=== PATIENT | male | born 1960 | race Caucasian/White ===

== ENCOUNTER → 2017-05-11 | Outpatient (CLI) | payer OTHER ==
--- NOTE | 2017-05-11 13:58 | XR ---
EXAMINATION TYPE: XR chest 2V DATE OF EXAM: 05/11/2017 COMPARISON: 11/05/2015 TECHNIQUE: PA and lateral views submitted. HISTORY: Psoriasis FINDINGS: The lungs are clear and there is no pneumothorax, pleural effusion, or focal pneumonia. Arthropathy of the shoulders. Biapical pleural thickening. Borderline cardiomegaly. Hypertrophic and degenerativ e change of the spine. No pleural calcifications. Chronic rib deformity on the right compatible with remote trauma. IMPRESSION: 1. No acute process.
[2017-05-11 14:31] LABS: Basophils % (A) 0 %; Eosinophils # (A) 0.2 k/uL (0-0.7); Eosinophils % (A) 4 %; HCT 52.3 % (39.0-53.0); HGB 16.6 gm/dL (13.0-17.5); Lymphocytes % (A) 21 %; MCH 31.3 pg (25.0-35.0); MCHC 31.8 g/dL (31.0-37.0); MCV 98.5 fL (80.0-100.0); Mean Platelet Volume 7.1; Monocytes # (A) 0.2 k/uL (0-1.0); Monocytes % (A) 5 %; Neutrophils # (A) 3.3 k/uL (1.3-7.7); Neutrophils % (A) 69 %; Platelet Count 170 k/uL (150-450); RBC 5.31 m/uL (4.30-5.90); RDW 12.2 % (11.5-15.5); WBC 4.8 k/uL (3.8-10.6)
[2017-05-11 14:38] LABS: ALT 74 U/L (21-72); AST 55 U/L (17-59)
== END | disposition home or self-care (01) ==
LOC: RADXRMAIN 13:35
PROVIDERS: ATTEND Dermatology MOHS-Micrographic Surgery
DX: L40.0 Psoriasis vulgaris (principal)
CPT/HCPCS: 36415; 71046; 82565; 84450; 84460; 85025

== ENCOUNTER → 2018-04-22 | Outpatient (CLI) | payer BC ==
--- NOTE | 2018-04-22 13:21 | XR ---
EXAMINATION TYPE: XR chest 2V DATE OF EXAM: 04/22/2018 COMPARISON: 05/11/2017 TECHNIQUE: PA and lateral views submitted. HISTORY: High blood pressure FINDINGS: The lungs are clear and there is no pneumothorax, pleural effusion, or focal pneumonia. No overt fa ilure. Arthropathy of the shoulder. Hypertrophic and degenerative changes spine. Stable appearing den sity overlying the vertebral column on the lateral view. No pleural calcifications. No granuloma. No diagnostic evidence of TB by chest x-ray. IMPRESSION: 1. No acute process. There is a nodular appearing density overlying the thoracic vertebral, and the l ateral view. CT of the chest could be obtained to assess if this is related to the osseous structures or pulmonary nodule.
== END | disposition home or self-care (01) ==
LOC: RADXRMAIN 12:42
PROVIDERS: ATTEND Dermatology MOHS-Micrographic Surgery
DX: L40.0 Psoriasis vulgaris (principal)
CPT/HCPCS: 71046

== ENCOUNTER 2020-03-14 01:03 | Inpatient (IN) | payer BC ==
--- NOTE | 2020-03-14 01:30 | ED ---
Chest Pain HPI - General Chief Complaint: Chest Pain Stated Complaint: Chest Pain Time Seen by Provider: 03/14/20 01:16 Source: police Mode of arrival: wheelchair Limitations: no limitations - History of Present Illness Initial Comments: This patient is a 60-year-old man with history of previous AK who states that he is having pain that is very similar to previous AK. States that he started having left chest and substernal pain little after midnight. He was feeling a little short of breath. Patient's son prevailed upon him to come to the emergency department. He states that he has had stents placed 3 times. He believes last time he was here was about 7 years ago for that. 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 MD Complaint: chest pain Onset/Timin -: hour(s) Onset: during rest Pain Location: substernal, left chest, right chest Pain Radiation: back Severity: severe Quality: aching Consistency: constant Improves With: nothing Worsens With: nothing Treatments Prior to Arrival: none - Related Data Home Medications Medication Instructions Recorded Confirmed Guselkumab [Tremfya] 100 mg SQ Q60D 03/14/20 03/14/20 Probenecid/Colchicine 1 tab PO BID PRN 03/14/20 03/14/20 [Probenecid-Colchicine Tabs] amLODIPine [Norvasc] 10 mg PO DAILY 03/14/20 03/14/20 lisinopriL [Zestril] 40 mg PO DAILY 03/14/20 03/14/20 Allergies Allergy/AdvReac Type Severity Reaction Status Date / Time No Known Allergies Allergy Verified 03/14/20 09:14 Review of Systems ROS Statement: Those systems with pertinent positive or pertinent negative responses have been documented in the HPI. ROS Other: All systems not noted in ROS Statement are negative. Constitutional: Denies: fever, chills Respiratory: Denies: cough, dyspnea Cardiovascular: Reports: chest pain. Denies: palpitations, orthopnea, edema, syncope Gastrointestinal: Denies: abdominal pain, nausea, vomiting Genitourinary: Denies: dysuria, hematuria Musculoskeletal: Denies: back pain Skin: Denies: rash Neurological: Denies: headache, weakness, numbness EKG Findings - EKG Results: EKG: interpreted by ERMD - Blocks, Roland, Hypertrophy, ST Abn: AV and intraventricular conduction: left bundle branch block (fixed/intermittent , complete/incomplete) QRS axis and voltage: left axis deviation (-30 to -90) Past Medical History Past Medical History: Chest Pain / Angina, Hyperlipidemia, Hypertension Additional Past Medical History / Comment(s): gout, psoriasis History of Any Multi-Drug Resistant Organisms: None Reported Past Surgical History: Heart Catheterization, Heart Catheterization With Stent Additional Past Surgical History / Comment(s): right leg Past Psychological History: No Psychological Hx Reported Smoking Status: Current some day smoker Past Alcohol Use History: Daily Past Drug Use History: None Reported General Exam Limitations: no limitations General appearance: alert, in no apparent distress Head exam: Present: atraumatic, normocephalic Eye exam: Present: normal appearance. Absent: scleral icterus, conjunctival injection ENT exam: Present: normal oropharynx Neck exam: Present: normal inspection Respiratory exam: Present: normal lung sounds bilaterally. Absent: respiratory distress, wheezes, rales, rhonchi, stridor Cardiovascular Exam: Present: regular rate, normal rhythm, normal heart sounds. Absent: systolic murmur, diastolic murmur, rubs, gallop GI/Abdominal exam: Present: soft. Absent: distended, tenderness, guarding, rebound, rigid, mass Extremities exam: Present: normal inspection, normal capillary refill. Absent: pedal edema, calf tenderness Back exam: Present: normal inspection. Absent: CVA tenderness (R), CVA tenderness (L) Neurological exam: Present: alert Skin exam: Present: warm, dry, intact, normal color. Absent: rash Course Vital Signs 03/14/20 03/14/20 03/14/20 01:06 01:14 01:27 Temperature 98.2 F Pulse Rate 83 70 Pulse Rate [ Pulse Oximetery ] Respiratory 22 20 Rate Blood Pressure 127/78 110/55 94/58 Blood Pressure [Left Arm] O2 Sat by Pulse 88 L 100 100 Oximetry 03/14/20 03/14/20 03/14/20 02:41 03:29 03:51 Temperature 98.1 F Pulse Rate 92 93 Pulse Rate [ 90 Pulse Oximetery ] Respiratory 18 18 16 Rate Blood Pressure 133/88 120/79 Blood Pressure 140/81 [Left Arm] O2 Sat by Pulse 98 99 Oximetry - Reevaluation(s) Reevaluation #1: 12/27/20 02:16 Patient is 60-year-old man reportedly with history of previous coronary artery disease. Not able to find any previous ECG, therefore case discussed with cardiology regarding the left bundle-branch block. Patient is beginning to have some relief with medical therapy. Chest Pain MDM - MDM This patient is a 60-year-old man presenting with chest pain. History, physical, labs consistent with acute coronary syndrome. He is given aspirin and morphine and beginning to get pain relief. Patient started on heparin, nitrates ordered. Case is discussed with cardiology and admitting physician. Critical Care Time Critical Care Time: Yes (40 minutes) Disposition Clinical Impression: Acute coronary syndrome with high troponin Disposition: ADMITTED IP TO THIS HOSP Condition: Serious Is patient prescribed a controlled substance at d/c from ED?: No
[2020-03-14] MEDS ORDERED: NITROGLYCERIN SL TABS 0.4 MG TAB SUBLINGUAL STA (01:38)
[2020-03-14] MEDS ORDERED: ASPIRIN 81 MG PO STA (01:38)
[2020-03-14] MEDS ORDERED: MORPHINE SULFATE 4 MG/ML SYRINGE IV STA ×3 (01:44→02:52)
[2020-03-14] MEDS ORDERED: HEPARIN SODIUM,PORCINE 5,000 UNIT/ML 1 ML VIAL IV ONE (01:44)
[2020-03-14] MEDS ORDERED: HEPARIN SODIUM,PORCINE 5,000 UNIT/ML 1 ML VIAL IV PRN (01:44)
[2020-03-14 01:58] LABS: Basophils # (A) 0.1 k/uL (0-0.2); Basophils % (A) 1 %; Eosinophils # (A) 0.2 k/uL (0-0.7); Eosinophils % (A) 2 %; HCT 51.1 % (39.0-53.0); HGB 17.8 gm/dL (13.0-17.5); Lymphocytes # (A) 1.7 k/uL (1.0-4.8); Lymphocytes % (A) 20 %; MCHC 34.9 g/dL (31.0-37.0); MCV 94.5 fL (80.0-100.0); Mean Platelet Volume 7.4; Monocytes # (A) 0.6 k/uL (0-1.0); Monocytes % (A) 7 %; Neutrophils # (A) 5.8 k/uL (1.3-7.7); Neutrophils % (A) 68 %; Platelet Count 184 k/uL (150-450); RBC 5.41 m/uL (4.30-5.90); RDW 12.3 % (11.5-15.5); WBC 8.6 k/uL (3.8-10.6)
[2020-03-14] MEDS: HEPARIN SOD,PORK IN 0.45% NACL 25,000 UNIT in 0.45% NACL 1 250ML.BAG IV SCH ×2 (02:01→19:41)
--- NOTE | 2020-03-14 02:09 | XR ---
EXAM: XR Chest, 1 View CLINICAL HISTORY: ITS.REASON XR Reason: chest pain TECHNIQUE: Frontal view of the chest. COMPARISON: September 18, 2018 FINDINGS: Lungs: There are more prominent interstitial markings in the lung bases than previous which may be due to lower lung volumes and subsegmental atelectasis versus mild edema or interstitial pneumonitis. Pulmonary vasculature is slightly prominent centrally. Pleural space: Unremarkable. No pneumothorax. Heart: The cardiac silhouette is mildly enlarged. Mediastinum: Unremarkable. Bones/joints: Mild to moderate multilevel osteophytosis is seen throughout the thoracic spine. IMPRESSION: Mild cardiomegaly with more prominent interstitial markings in the lung bases than previous which may be due to lower lung volumes and subsegmental atelectasis versus mild edema or interstitial pneumonitis.
[2020-03-14 02:10] LABS: ALT 34 U/L (4-49); AST 29 U/L (17-59); African American GFR (CKD) >90 (>60 ml/min/1.73 sqM); Albumin 4.4 g/dL (3.5-5.0); Alkaline Phosphatase 69 U/L (38-126); Amylase 47 U/L (30-110); Anion Gap 11 mmol/L; Blood Urea Nitrogen 9 mg/dL (9-20); Carbon Dioxide 25 mmol/L (22-30); Chloride 99 mmol/L (98-107); Glucose 140 mg/dL (74-99); Lipase 89 U/L (23-300); Magnesium 1.9 mg/dL (1.6-2.3); Non-African American GFR(CKD) >90 (>60 ml/min/1.73 sqM); Potassium 4.1 mmol/L (3.5-5.1); Sodium 135 mmol/L (137-145); Total Bilirubin 0.6 mg/dL (0.2-1.3); Total Protein 7.5 g/dL (6.3-8.2)
[2020-03-14 02:25] LABS: D-Dimer 0.22 mg/L FEU (<0.60); Partial Thromboplastin Time 29.8 sec (22.0-30.0); Prothrombin Time 10.3 sec (9.0-12.0)
[2020-03-14] MEDS ORDERED: NITROGLYCERIN SL TABS 0.4 MG TAB SUBLINGUAL PRN (02:53)
[2020-03-14] MEDS ORDERED: METOPROLOL TARTRATE 12.5 MG TAB PO SCH (09:00)
[2020-03-14] MEDS ORDERED: lisinopriL 5 MG TAB PO SCH (09:00)
--- NOTE | 2020-03-14 11:44 | P.CRDCN ---
History of Present Illness Consult date: 03/14/20 History of present illness: CHIEF COMPLAINT: Chest pain HISTORY OF PRESENT ILLNESS: This is a 60-year-old male with a past medical history significant for hypertension, hyperlipidemia, nicotine dependence, and coronary artery disease with previous stent placement. Patient states he used to follow in the office with Dr. Hussein but has not seen him in probably 6 or 7 years. We have been asked to see the patient in consultation for chest pain. Patient examined this morning at the bedside. Patient states he was sitting in his recliner yesterday around 9 PM when he developed chest pain. He states the pain felt like a burning sensation. He reports feeling short of breath with this as well. He states the pain went into both of his shoulders. The pain was not worse with inspiration or movement. Patient states he gets this burning sensation in his chest about once every month or 2. He states he usually can take an Aleve and the symptoms resolved but this time they did not. The patient states he is still having a small amount of pain this morning but it is significantly improved from admission. The patient reports having 3 stents placed in the past. He thinks the last stent was placed about 5 or 6 years ago. He reports he has not followed up since that time. He reports he was started on lisinopril and Norvasc within the past few months by his PCP. He denies taking any other cardiac medications. DIAGNOSTICS: EKG reveals sinus mechanism with left bundle branch block Chest xray mild cardiomegaly with more prominent interstitial markings in the lung bases than previous which may be due to lower lung volumes and subsegmental atelectasis versus mild edema or or interstitial pneumonitis Laboratory data: WBC 8.6. Hemoglobin 17.8. Platelet count 184. D-dimer 0.22. Sodium 135. Potassium 4.1. BUN 9. Creatinine 0.76. Magnesium 1.9. Troponin 0.172. 0.151. 0.122. Current home cardiac medications include Norvasc 10 g daily and lisinopril 40 mg daily REVIEW OF SYSTEMS: At the time of my exam: CONSTITUTIONAL: Denies fever or chills. HEENT: Denies blurred vision, vision changes, or eye pain. Denies hemoptysis CARDIOVASCULAR: Denies chest pain, orthopnea, PND or palpitations RESPIRATORY: No shortness of breath. GASTROINTESTINAL: Denies abdominal pain. Denies nausea or vomiting. HEMATOLOGIC: Denies bleeding disorders. GENITOURINARY: Denies any blood in urine. SKIN: Denies pruitis. Denies rash. PHYSICAL EXAM: VITAL SIGNS: Reviewed. GENERAL: Well-developed in no acute distress. HEENT: Head is normocephalic. Pupils are equal, round. Sclerae anicteric. Mucous membranes of the mouth are moist. Neck supple. No JVD or thyromegaly LUNGS: Respirations even and unlabored. Lungs essentially clear to auscultation bilaterally. HEART: Regular rate and rhythm. S1 and S2 heard. ABDOMEN: Soft. Nondistended. Nontender. EXTREMITIES: Normal range of motion. No clubbing or cyanosis. Peripheral pulses intact. No lower extremity edema NEUROLOGIC: Awake and alert. Oriented x 3. ASSESSMENT: Non-ST elevated myocardial infarction Coronary artery disease with previous stent placement (patient reports 3 stents, last placed 5-6 years ago) Hypertension Hyperlipidemia Nicotine dependence PLAN: Obtain 2-D echo to assess cardiac structure and function Patient was advised to undergo cardiac catheterization. However patient is refusing at this time. We will continue with medical management. Begin aspirin 81 mg daily, Plavix 75 mg daily, metoprolol 25 mg twice a day Resume lisinopril at a lower dose of 10 mg daily. Will increase if blood pressure tolerates. Resume home dose of Norvasc Continue IV heparin for an additional 24 hours Further recommendations pending patient course Nurse practitioner note has been reviewed by physician. Signing provider agrees with the documented findings, assessment, and plan of care. Past Medical History Past Medical History: Chest Pain / Angina, Hyperlipidemia, Hypertension, Myocardial Infarction ([place]) Additional Past Medical History / Comment(s): gout, psoriasis Last Myocardial Infarction Date:: 03/19/2014 History of Any Multi-Drug Resistant Organisms: None Reported Past Surgical History: Heart Catheterization, Heart Catheterization With Stent Additional Past Surgical History / Comment(s): right leg Past Anesthesia/Blood Transfusion Reactions: No Reported Reaction Date of Last Stent Placement:: 03/19/2014 Past Psychological History: No Psychological Hx Reported Smoking Status: Current some day smoker Past Alcohol Use History: Daily Past Drug Use History: None Reported Medications and Allergies Home Medications Medication Instructions Recorded Confirmed Type Guselkumab [Tremfya] 100 mg SQ Q60D 03/14/20 03/14/20 History Probenecid/Colchicine 1 tab PO BID PRN 03/14/20 03/14/20 History [Probenecid-Colchicine Tabs] amLODIPine [Norvasc] 10 mg PO DAILY 03/14/20 03/14/20 History lisinopriL [Zestril] 40 mg PO DAILY 03/14/20 03/14/20 History Allergies Allergy/AdvReac Type Severity Reaction Status Date / Time No Known Allergies Allergy Verified 03/14/20 09:14 Physical Exam Vitals: Vital Signs Temp Pulse Pulse Resp BP BP Pulse Ox 03/14/20 08:00 98.2 F 94 20 118/77 97 03/14/20 04:48 90 16 03/14/20 03:51 93 16 120/79 99 03/14/20 03:29 98.1 F 90 18 140/81 98 03/14/20 02:41 92 18 133/88 03/14/20 01:27 70 20 94/58 100 03/14/20 01:14 110/55 100 03/14/20 01:06 98.2 F 83 22 127/78 88 L Intake and Output 03/13/20 03/14/20 03/14/20 22:59 06:59 14:59 Intake Total 89.667 Balance 89.667 Intake: Intake, IV Titration 89.667 Amount Heparin Sod,Pork in 0.45% 89.667 NaCl 25,000 unit In 0.45 % NaCl 1 250ml.bag @ 7. 874 UNITS/KG/HR 10 mls/hr IV .Q24H [facility] Rx#: [id number] Other: Voiding Method Toilet # Voids 1 Weight 128.9 kg Results 03/14/20 01:46 03/14/20 01:46 Cardiac Enzymes 03/14/20 03/14/20 03/14/20 Range/Units 01:46 01:46 05:33 AST 29 (17-59) U/L Troponin I 0.172 H* 0.151 H* (0.000-0.034) ng/mL 03/14/20 Range/Units 08:26 AST (17-59) U/L Troponin I 0.122 H* (0.000-0.034) ng/mL Coagulation 03/14/20 03/14/20 Range/Units 01:46 08:26 PT 10.3 (9.0-12.0) sec APTT 29.8 38.6 H (22.0-30.0) sec CBC 03/14/20 Range/Units 01:46 WBC 8.6 (3.8-10.6) k/uL RBC 5.41 (4.30-5.90) m/uL Hgb 17.8 H (13.0-17.5) gm/dL Hct 51.1 (39.0-53.0) % Plt Count 184 (150-450) k/uL Comprehensive Metabolic Panel 03/14/20 Range/Units 01:46 Sodium 135 L (137-145) mmol/L Potassium 4.1 (3.5-5.1) mmol/L Chloride 99 (98-107) mmol/L Carbon Dioxide 25 (22-30) mmol/L BUN 9 (9-20) mg/dL Creatinine 0.76 (0.66-1.25) mg/dL Glucose 140 H (74-99) mg/dL Calcium 10.0 (8.4-10.2) mg/dL AST 29 (17-59) U/L ALT 34 (4-49) U/L Alkaline Phosphatase 69 (38-126) U/L Total Protein 7.5 (6.3-8.2) g/dL Albumin 4.4 (3.5-5.0) g/dL Current Medications Generic Name Dose Route Start Last Admin Trade Name Freq PRN Reason Stop Dose Admin Amlodipine Besylate 10 mg 03/15/20 09:00 Amlodipine 10 Mg Tab PO DAILY [facility] Aspirin 81 mg 03/15/20 09:00 Aspirin 81 Mg PO DAILY [facility] Atorvastatin Calcium 40 mg 03/14/20 21:00 Atorvastatin 40 Mg Tab PO HS [facility] Clopidogrel Bisulfate 75 mg 03/14/20 11:00 Clopidogrel 75 Mg Tab PO DAILY [facility] Heparin Sodium (Porcine) 0 unit 03/14/20 01:44 03/14/20 11:00 Heparin Sodium,Porcine 5,000 Unit/Ml 1 Ml Vial IV 3,222.5 unit PER PROTOCOL PRN Administration Low PTT Protocol Heparin Sodium/Sodium Chloride 250 mls @ 10 mls/hr 03/14/20 01:45 03/14/20 10:59 25,000 unit/ Sodium Chloride IV 9.874 units/kg/hr .Q24H [facility]IE 12.541 mls/hr Titration Protocol 7.874 UNITS/KG/HR Lisinopril 5 mg 03/14/20 09:00 03/14/20 08:53 Lisinopril 5 Mg Tab PO 5 mg DAILY CALLIE Administration Metoprolol Tartrate 12.5 mg 03/14/20 09:00 03/14/20 08:53 Metoprolol Tartrate 12.5 Mg Tab PO 12.5 mg BID CALLIE Administration Nitroglycerin 0.4 mg 03/14/20 02:53 Nitroglycerin Sl Tabs 0.4 Mg Tab SUBLINGUAL Q5M PRN Chest Pain Intake and Output 03/13/20 03/14/20 03/14/20 22:59 06:59 14:59 Intake Total 89.667 Balance 89.667 Intake: Intake, IV Titration 89.667 Amount Heparin Sod,Pork in 0.45% 89.667 NaCl 25,000 unit In 0.45 % NaCl 1 250ml.bag @ 7. 874 UNITS/KG/HR 10 mls/hr IV .Q24H [facility] Rx#: [id number] Other: Voiding Method Toilet # Voids 1 Weight 128.9 kg 03/14/20 01:46 03/14/20 01:46
[2020-03-14] MEDS: CLOPIDOGREL 75 MG TAB PO SCH (12:02)
--- NOTE | 2020-03-14 12:50 | P.HPIM ---
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 Chest x-ray showed mild interstitial disease hemoglobin was 17.8 hematocrit 8 is elevated troponin was 0.17 to. Patient blood pressure was a bit elevated the time was stabilized started on heparin drip diagnosed with non-ST OH will be seeing cardiology and still nothing by mouth for possible heart cath. Review of Systems CONSTITUTIONAL: Well-developed no acute respiratory distress. EYES: No icterus sclerae, no conjunctivitis. EARS, NOSE, MOUTH, THROAT, and FACE: No sore throat, lymphadenopathy, carotid bruits or deformity. RESPIRATORY: Positive shortness of breath no cough wheezes CARDIOVASCULAR: Positive PND orthopnea and angina. GASTROINTESTINAL: No Abd pain, Nausea or vomiting, no Diarrhea or constipation, No GI Bleed, no distention or masses. GENITOURINARY: Negative for Hematuria or UTI, no kidney stones. INTEGUMENT/BREAST: Negative for any muscular injury with mild osteoarthritis.. HEMATOLOGIC/LYMPHATIC: Negative for bleed or purpura. MUSCULOSKELTAL: Negative for Myalgia or arthralgia. NEURLOGICAL: No LOC, Sz or syncope, blurred vision dizziness or abnormality.. BEHAVIORAL/PSYCH: Negative. ENDOCRINE: Negative. Past Medical History Past Medical History: Chest Pain / Angina, Hyperlipidemia, Hypertension, Myocardial Infarction ([place]) Additional Past Medical History / Comment(s): gout, psoriasis Last Myocardial Infarction Date:: 03/19/2014 History of Any Multi-Drug Resistant Organisms: None Reported Past Surgical History: Heart Catheterization, Heart Catheterization With Stent Additional Past Surgical History / Comment(s): right leg Past Anesthesia/Blood Transfusion Reactions: No Reported Reaction Date of Last Stent Placement:: 03/19/2014 Past Psychological History: No Psychological Hx Reported Smoking Status: Current some day smoker Past Alcohol Use History: Daily Past Drug Use History: None Reported Medications and Allergies Home Medications Medication Instructions Recorded Confirmed Type Guselkumab [Tremfya] 100 mg SQ Q60D 03/14/20 03/14/20 History Probenecid/Colchicine 1 tab PO BID PRN 03/14/20 03/14/20 History [Probenecid-Colchicine Tabs] amLODIPine [Norvasc] 10 mg PO DAILY 03/14/20 03/14/20 History lisinopriL [Zestril] 40 mg PO DAILY 03/14/20 03/14/20 History Allergies Allergy/AdvReac Type Severity Reaction Status Date / Time No Known Allergies Allergy Verified 03/14/20 09:14 Physical Exam Vitals: Vital Signs Temp Pulse Pulse Resp BP BP Pulse Ox 03/14/20 11:45 98.5 F 86 20 126/69 95 03/14/20 08:00 98.2 F 94 20 118/77 97 03/14/20 04:48 90 16 03/14/20 03:51 93 16 120/79 99 03/14/20 03:29 98.1 F 90 18 140/81 98 03/14/20 02:41 92 18 133/88 03/14/20 01:27 70 20 94/58 100 03/14/20 01:14 110/55 100 03/14/20 01:06 98.2 F 83 22 127/78 88 L Intake and Output 03/13/20 03/14/20 03/14/20 22:59 06:59 14:59 Intake Total 89.667 Balance 89.667 Intake: Intake, IV Titration 89.667 Amount Heparin Sod,Pork in 0.45% 89.667 NaCl 25,000 unit In 0.45 % NaCl 1 250ml.bag @ 7. 874 UNITS/KG/HR 10 mls/hr IV .Q24H [facility] Rx#: [id number] Other: Voiding Method Toilet # Voids 1 Weight 128.9 kg General Appearance: Alert, cooperative, no distress, appears stated age. Mildly obese Neck HEENT: Supple, no lymphadenopathy, no thyroid enlargement, no carotid bruits. Lungs: Decreased breath some relative far rhonchi Chest Wall: Decrease expansion with deep inspiration no tenderness and no deformity was found on exam, no costochondral pain or discomfort. Heart: Regular rate and rhythm, S1, S2 normal, no murmur, rub or gallop. Back: Symmetric, no curvature, ROM normal, no CVA tenderness. Abdomen: Soft, non-tender, bowel sounds active all four quadrants, no masses, no organomegaly. Extremities: Extremities normal, atraumatic, no cyanosis trace edema Pulses: 2+ and symmetric. Skin: Skin color, texture, tugor normal, no rashes or lesions. Neurologic: Alert oriented x3 cranial nerves II through XII intact, no motor deficit, no abnormal balance or gait. Results CBC & Chem 7: 03/14/20 01:46 03/14/20 01:46 Labs: Abnormal Lab Results - Last 24 Hours (Table) 03/14/20 03/14/20 03/14/20 Range/Units 01:46 01:46 01:46 Hgb 17.8 H (13.0-17.5) gm/dL APTT (22.0-30.0) sec Sodium 135 L (137-145) mmol/L Glucose 140 H (74-99) mg/dL Troponin I 0.172 H* (0.000-0.034) ng/mL 03/14/20 03/14/20 03/14/20 Range/Units 05:33 08:26 08:26 Hgb (13.0-17.5) gm/dL APTT 38.6 H (22.0-30.0) sec Sodium (137-145) mmol/L Glucose (74-99) mg/dL Troponin I 0.151 H* 0.122 H* (0.000-0.034) ng/mL Thrombosis Risk Factor Assmnt - DVT/VTE Prophylaxis DVT/VTE Prophylaxis: Pharmacologic Prophylaxis ordered, Mechanical Prophylaxis ordered - Choose All That Apply Any of the Below Risk Factors Present?: Yes Each Factor Represents 1 point: Acute OH, Obesity (BMI >25) Other Risk Factors: Yes Each Risk Factor Represents 2 Points: Age 61-74 years Other congenital or acquired thrombophilia - If yes, enter type in comment: No Thrombosis Risk Factor Assessment Total Risk Factor Score: 4 Thrombosis Risk Factor Assessment Level: Moderate Risk Assessment and Plan Assessment: 1 non-ST OH: Patient was hospitalized will continue heparin drip continue nitro consult cardiology echocardiogram possible heart cath. Patient is argumentative about his heart catheter this point after the full explanation is agreeable to do an echo and stress test if abnormal he'll be going for heart cath. 2 recurrent unstable angina: With known history of coronary disease patient will require intervention for better diagnosis methadone. 3 hypertension: We'll resume lisinopril at 40 mg a day along with amlodipine 10 mg daily. 4 hyperlipidemia: I agree with atorvastatin 40 mg daily. 5 BPH: Watch for any urinary retention. 6 chronic history of psoriasis: Patient has been on biological agent as an injection every 60 days. 7 history of gout: Remain on probencid and colchicin. 8 hyperglycemia: On diet control Accu-Chek sliding coverage and be done. 9 possible obstructive sleep apnea with mostly secondary polycythemia patient will require sleep study. 10 GI prophylaxis: Patient is protonic 40 mg daily. 11 DVT prophylaxis: Patient is on heparin drip currently. Next CODE STATUS: Full code. Admit patient to inpatient status more than 2 night stay.
[2020-03-14 15:30] LABS: Glucose,Whole Blood 185 mg/dL (75-99)
[2020-03-14] MEDS: METOPROLOL TARTRATE 25 MG TAB PO SCH (19:41)
[2020-03-14] MEDS: ATORVASTATIN 40 MG TAB PO SCH (19:41)
[2020-03-15 07:30] LABS: Basophils # (A) 0.1 k/uL (0-0.2); Basophils % (A) 1 %; Eosinophils # (A) 0.1 k/uL (0-0.7); Eosinophils % (A) 2 %; HCT 49.2 % (39.0-53.0); HGB 16.7 gm/dL (13.0-17.5); Lymphocytes % (A) 15 %; MCH 32.6 pg (25.0-35.0); MCHC 33.9 g/dL (31.0-37.0); MCV 96.4 fL (80.0-100.0); Mean Platelet Volume 7.3; Monocytes # (A) 0.6 k/uL (0-1.0); Monocytes % (A) 8 %; Neutrophils # (A) 4.9 k/uL (1.3-7.7); Neutrophils % (A) 72 %; Platelet Count 150 k/uL (150-450); RBC 5.11 m/uL (4.30-5.90); RDW 12.3 % (11.5-15.5); WBC 6.7 k/uL (3.8-10.6)
[2020-03-15 07:42] LABS: ALT 23 U/L (4-49); AST 20 U/L (17-59); African American GFR (CKD) >90 (>60 ml/min/1.73 sqM); Albumin 3.9 g/dL (3.5-5.0); Alkaline Phosphatase 67 U/L (38-126); Anion Gap 10 mmol/L; Blood Urea Nitrogen 15 mg/dL (9-20); Calcium 9.9 mg/dL (8.4-10.2); Carbon Dioxide 21 mmol/L (22-30); Chloride 103 mmol/L (98-107); Cholesterol 200 mg/dL (<200); Glucose 148 mg/dL (74-99); HDL Cholesterol 60 mg/dL (40-60); LDL Cholesterol,Calculated 114 mg/dL (0-99); Non-African American GFR(CKD) >90 (>60 ml/min/1.73 sqM); Potassium 4.2 mmol/L (3.5-5.1); Sodium 134 mmol/L (137-145); Total Bilirubin 1.3 mg/dL (0.2-1.3); Total Protein 6.9 g/dL (6.3-8.2); Triglycerides 129 mg/dL (<150)
[2020-03-15] MEDS: CLOPIDOGREL 75 MG TAB PO SCH (08:13)
[2020-03-15] MEDS: amLODIPine 10 MG TAB PO SCH (08:13)
[2020-03-15] MEDS: METOPROLOL TARTRATE 25 MG TAB PO SCH ×2 (08:13→20:51)
[2020-03-15] MEDS: lisinopriL 10 MG TAB PO SCH (08:13)
[2020-03-15] MEDS: ASPIRIN 81 MG PO SCH (08:13)
[2020-03-15] MEDS ORDERED: NON FORMULARY DRUG (Lisinopril [Zestril] 40 MG Tablet) PO SCH (09:00)
[2020-03-15] MEDS ORDERED: ASPIRIN 325 MG TAB PO SCH (09:00)
--- NOTE | 2020-03-15 10:29 | P.PN ---
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 Chest x-ray showed mild interstitial disease hemoglobin was 17.8 hematocrit 8 is elevated troponin was 0.17 to. Patient blood pressure was a bit elevated the time was stabilized started on heparin drip diagnosed with non-ST UT will be seeing cardiology and still nothing by mouth for possible heart cath. 03/15: Patient evaluated this morning, resting in bed comfortably in no acute distress. Patient denies any further episodes of chest pain or shortness of breath. Patient refused to undergo cardiac catheterization yesterday. Had lengthy discussion with patient today, he is now agreeable to cardiac catheterization. Patient continues on aspirin, Plavix along with metoprolol and heparin drip. Cardiology on consult, will discuss cardiac catheterization with patient today. Objective - Vital Signs Vital signs: Vital Signs Temp 98.3 F 03/15/20 08:12 Pulse 64 03/15/20 08:12 Resp 18 03/15/20 08:12 BP 130/83 03/15/20 08:12 Pulse Ox 95 03/15/20 08:12 Intake & Output 03/14/20 03/15/20 03/15/20 18:59 06:59 18:59 Intake Total 669.987 109.107 Balance 669.987 109.107 Weight 127.3 kg Intake: IV 100.32 Heparin Sod,Pork in 0.45% 100.32 NaCl 25,000 unit In 0.45 % NaCl 1 250ml.bag @ 7. 874 UNITS/KG/HR 10 mls/hr IV .Q24H [facility] Rx#: [id number] Intake, IV Titration 89.667 109.107 Amount Heparin Sod,Pork in 0.45% 89.667 109.107 NaCl 25,000 unit In 0.45 % NaCl 1 250ml.bag @ 7. 874 UNITS/KG/HR 10 mls/hr IV .Q24H [facility] Rx#: [id number] Oral 480 Other: # Voids 1 1 - Constitutional General appearance: Present: cooperative, no acute distress, obese - EENT Eyes: Present: EOMI, PERRLA, normal appearance ENT: Present: hearing grossly normal, normal oropharynx. Absent: thrush - Neck Neck: Present: normal ROM. Absent: lymphadenopathy, rigidity, thyromegaly - Respiratory Respiratory: bilateral: CTA, negative: diminished, dullness, rales, rhonchi, wheezing - Cardiovascular Rhythm: regular Heart sounds: normal: S1, S2 - Gastrointestinal General gastrointestinal: Present: normal bowel sounds, soft. Absent: distended, hepatomegaly, organomegaly, splenomegaly, tenderness - Integumentary Integumentary: Present: normal. Absent: pale, rash, ulcer - Neurologic Neurologic: Present: CNII-XII intact. Absent: focal deficits - Musculoskeletal Musculoskeletal: Present: gait normal, strength equal bilaterally. Absent: right sided weakness, left sided weakness - Psychiatric Psychiatric: Present: A&O x's 3, appropriate affect, intact judgment & insight - Labs CBC & Chem 7: 03/15/20 06:56 03/15/20 06:56 Labs: Abnormal Lab Results - Last 24 Hours (Table) 03/14/20 03/14/20 03/15/20 Range/Units 01:26 16:54 06:56 APTT 54.0 H (22.0-30.0) sec Sodium 134 L (137-145) mmol/L Carbon Dioxide 21 L (22-30) mmol/L Creatinine 0.64 L (0.66-1.25) mg/dL Glucose 148 H (74-99) mg/dL POC Glucose (mg/dL) 185 H (75-99) mg/dL Cholesterol 200 H (<200) mg/dL LDL Cholesterol, Calc 114 H (0-99) mg/dL 03/15/20 Range/Units 06:56 APTT 52.0 H (22.0-30.0) sec Sodium (137-145) mmol/L Carbon Dioxide (22-30) mmol/L Creatinine (0.66-1.25) mg/dL Glucose (74-99) mg/dL POC Glucose (mg/dL) (75-99) mg/dL Cholesterol (<200) mg/dL LDL Cholesterol, Calc (0-99) mg/dL Assessment and Plan Plan: 1 non-ST UT: Patient was hospitalized will continue heparin drip continue nitro consult cardiology, patient originally refusing cardiac catheterization, patient is now agreeable 2 recurrent unstable angina: With known history of coronary disease, patient will require heart catheterization 3 hypertension: resume lisinopril at 40 mg a day along with amlodipine 10 mg daily. 4 hyperlipidemia: I agree with atorvastatin 40 mg daily. 5 BPH: Watch for any urinary retention. 6 chronic history of psoriasis: Patient has been on biological agent as an injection every 60 days. 7 history of gout: Remain on probencid and colchicin. 8 hyperglycemia: On diet control Accu-Chek sliding coverage and be done. 9 possible obstructive sleep apnea with mostly secondary polycythemia patient will require sleep study. 10 GI prophylaxis: Patient is protonic 40 mg daily. 11 DVT prophylaxis: Patient is on heparin drip currently. Next CODE STATUS: Full code. Admit patient to inpatient status more than 2 night stay. The above impression and plan of care have been discussed and directed by signing physician. Dianne Craig nurse practitioner acting as scribe for signing physician.
[2020-03-15] MEDS ORDERED: ALPRAZolam 0.5 MG TAB PO PRN (11:27)
[2020-03-15] MEDS ORDERED: ALPRAZolam 0.25 MG TAB PO PRN (11:27)
[2020-03-15] MEDS ORDERED: SODIUM CHLORIDE 0.9% 1,000 ML in EMPTY BAG 1 BAG IV ONE (11:27)
--- NOTE | 2020-03-15 11:41 | P.PN ---
Subjective Progress Note Date: 03/15/20 Principal diagnosis: Abnormal cardiac enzymes This is a pleasant 60-year-old gentleman was coronary artery disease and prior coronary revascularization as well as hypertension and dyslipidemia who was admitted to the hospital with shortness of breath and ruled in for acute coron holland event. Initially the patient was seen by Dr. Razo yesterday and a heart catheterization was advised but the patient refused. Today he agreed to pursue a heart catheterization. The EKG showed left bundle. Echo is in process to be done. Objective - Vital Signs Vital signs: Vital Signs Temp 98.3 F 03/15/20 08:12 Pulse 64 03/15/20 08:12 Resp 18 03/15/20 08:12 BP 130/83 03/15/20 08:12 Pulse Ox 95 03/15/20 08:12 Intake & Output 03/14/20 03/15/20 03/15/20 18:59 06:59 18:59 Intake Total 669.987 109.107 Balance 669.987 109.107 Weight 127.3 kg Intake: IV 100.32 Heparin Sod,Pork in 0.45% 100.32 NaCl 25,000 unit In 0.45 % NaCl 1 250ml.bag @ 7. 874 UNITS/KG/HR 10 mls/hr IV .Q24H [facility] Rx#: [id number] Intake, IV Titration 89.667 109.107 Amount Heparin Sod,Pork in 0.45% 89.667 109.107 NaCl 25,000 unit In 0.45 % NaCl 1 250ml.bag @ 7. 874 UNITS/KG/HR 10 mls/hr IV .Q24H [facility] Rx#: [id number] Oral 480 Other: # Voids 1 1 - Constitutional General appearance: Present: no acute distress - Respiratory Respiratory: bilateral: diminished - Cardiovascular Rhythm: regular Heart sounds: normal: S1, S2 - Labs CBC & Chem 7: 03/15/20 06:56 03/15/20 06:56 Labs: Abnormal Lab Results - Last 24 Hours (Table) 03/14/20 03/14/20 03/15/20 Range/Units 01:26 16:54 06:56 APTT 54.0 H (22.0-30.0) sec Sodium 134 L (137-145) mmol/L Carbon Dioxide 21 L (22-30) mmol/L Creatinine 0.64 L (0.66-1.25) mg/dL Glucose 148 H (74-99) mg/dL POC Glucose (mg/dL) 185 H (75-99) mg/dL Cholesterol 200 H (<200) mg/dL LDL Cholesterol, Calc 114 H (0-99) mg/dL 03/15/20 Range/Units 06:56 APTT 52.0 H (22.0-30.0) sec Sodium (137-145) mmol/L Carbon Dioxide (22-30) mmol/L Creatinine (0.66-1.25) mg/dL Glucose (74-99) mg/dL POC Glucose (mg/dL) (75-99) mg/dL Cholesterol (<200) mg/dL LDL Cholesterol, Calc (0-99) mg/dL Assessment and Plan Assessment: Assessment #1 acute coronary event #2 coronary artery disease #3 multiple comorbid conditions Plan #1 the patient is in process of having heart catheterization #2 follow-up with the patient
[2020-03-15] MEDS ORDERED: IV FLUID CONTINUATION 800 ML IV ONE (11:45)
[2020-03-15] MEDS ORDERED: LIDOCAINE 1% INJ 10MG/ML (20 ML MDV) ONE (11:51)
[2020-03-15] MEDS ORDERED: fentaNYL (PF) 50 MCG/ML 2 ML AMP ONE (11:58)
[2020-03-15] MEDS ORDERED: MIDAZOLAM 2 MG/2 ML VIAL IV ONE (12:00)
[2020-03-15] MEDS: fentaNYL (PF) 50 MCG/ML 2 ML AMP IV ONE ×2 (12:00→13:01)
[2020-03-15] MEDS ORDERED: LIDOCAINE 1% INJ 10MG/ML (20 ML MDV) SQ ONE (12:01)
[2020-03-15] MEDS ORDERED: BIVALIRUDIN BOLUS 250 MG/50 ML IV ONE (12:40)
[2020-03-15] MEDS ORDERED: BIVALIRUDIN 250 MG in SODIUM CHLORIDE 0.9% 50 ML IV ONE ×2 (12:41→13:09)
[2020-03-15] MEDS ORDERED: IOPAMIDOL-370 125ML BTL INJ ONE (12:49)
--- NOTE | 2020-03-15 13:00 | CC ---
CARDIAC CATHETERIZATION REPORT INDICATION: Non ST-segment elevation myocardial infarction. This is a 60-year-old gentleman with known extensive coronary artery disease, status post multiple prior angioplasties, who has not been seen by a clinical research specialist on a regular basis, comes into hospital with chest pain and ruled in for myocardial infarction. Initially, he did not want to have cardiac catheterization done. He changed his mind and agreed to proceed with it. PROCEDURE NOTE: After obtaining informed consent, left heart catheterization and coronary angiogram were performed via the right femoral artery. The right coronary artery was engaged using the right Brittaney catheter. Left coronary artery was engaged using an Amplatz left size 1 catheter after attempting a size 3.5 Brittaney and a multipurpose catheter to engage the left unsuccessfully. The patient tolerated the procedure well without any obvious immediate complications. FINDINGS: 1. HEMODYNAMICS: Left ventricular end-diastolic pressure is 18 mm. There is no significant gradient across the aortic valve. 2. LEFT VENTRICULOGRAM: Left ventriculogram is not performed. 3. ANGIOGRAPHIC DATA: Left main coronary artery appears calcified but is free of significant stenosis. Divides into left anterior descending coronary artery and circumflex coronary artery. Both the LAD and the circumflex coronary arteries were previously stented. The circumflex coronary artery has a proximal stent and a stent that goes into the first OM and shows a stenosis involving the stent involving the first OM branch. The AV groove circumflex which is a small vessel has a focal 95% stenosis. The LAD previously deployed stent appears patent. There is mild to moderate atherosclerotic disease in the mid LAD. The right coronary artery is a large dominant vessel that shows 2 new focal stenotic lesions involving the mid to distal area. At its worse, it seems to be a 90% stenosis. CONCLUSION: Severe three-vessel coronary artery disease with significant stenosis involving the mid and distal right coronary artery, critical stenosis involving the OM branch and the AV groove circumflex. PLAN: I am going to have Dr. Adams the on-call credit advisor review the angiographic data and advise on intervention. MMKENNETHL / WELLINGTONN: [id number] /
[2020-03-15] MEDS ORDERED: NITROGLYCERIN 1000MCG/10ML SYRINGE INTRACORON ONE (13:23)
[2020-03-15] MEDS ORDERED: IOPAMIDOL-370 100ML BTL INJ ONE ×2 (13:31→13:33)
[2020-03-15] MEDS ORDERED: CLOPIDOGREL 75 MG TAB PO ONE (13:34)
[2020-03-15] MEDS ORDERED: CLOPIDOGREL 75 MG TAB ONE (13:35)
[2020-03-15] MEDS ORDERED: RX INFO: IV CONTRAST WAS GIVEN 1 EACH MISC MISCELLANE PRN (13:40)
[2020-03-15] MEDS ORDERED: MAG HYDROX/AL HYDROX/SIMETH 30 ML CUP PO PRN (13:40)
[2020-03-15] MEDS ORDERED: NITROGLYCERIN SL TABS 0.4 MG TAB SUBLINGUAL PRN (13:40)
[2020-03-15] MEDS ORDERED: ATROPINE SULFATE 0.1 MG/ML 10ML SYRINGE IV PRN (13:40)
[2020-03-15] MEDS ORDERED: SODIUM CHLORIDE 0.9% 1,000 ML IV SCH (13:45)
--- NOTE | 2020-03-15 14:36 | PTCA ---
PERCUTANEOUSTRANS CORORONARY ANGIOGRAPHY PERCUTANEOUS CORONARY INTERVENTION: DATE OF SERVICE: March 15, 2020 PERFORMING PHYSICIAN: Luis Admas MD. PROCEDURE PERFORMED: 1. Successful stenting of the first obtuse marginal branch of left circumflex using a 2.0 x 12 mm Babcock drug-eluting stent with an excellent angiographic results and reduction of stenosis from 99% to 0%. 2. Successful stenting of the mid left circumflex coronary artery using 2.0 x 12 mm Paul drug-eluting stent with an excellent angiographic result and reduction of stenosis from 99% to 0%. 3. Successful balloon angioplasty of the distal left circumflex coronary artery. INDICATION: This is a 60-year-old gentleman with coronary artery disease and prior stenting of the left circumflex as well as hypertension and dyslipidemia who was admitted to the hospital with chest discomfort and ruled in for acute non-STEMI. He underwent a heart catheterization by Dr. Pulido and was found to have critical disease involving OM1 as well as LCX as well as RCA. APPROACH: Right common femoral artery. COMPLICATION: None. LEVEL OF SEDATION: Moderate with sedation length of 63 minutes. PROCEDURE: Please refer to diagnostic heart catheterization that was performed by Dr. Pulido earlier today. Anticoagulation was achieved using Angiomax. I did engage the left main using an XB4 guide. I did wire the OM1 as well as LCX using 2 Whisper wires. Balloon angioplasty was achieved using 2.0 x 12 mm balloon. I deployed in both the left circumflex as well as OM1 2.0 x 12 mm stents where the stent was positioned under fluoroscopy guidance and deployed under its nominal pressure with the following angiogram showing excellent angiographic results. I did balloon angioplasty of the distal left circumflex but attempting advancing stent was unsuccessful because of the previous stent in the mid left circumflex. Because of that, I stopped because I have reasonable angiographic results without any dye staining in the distal left circumflex coronary artery. The procedure was completed without any complication. POSTPROCEDURE MANAGEMENT: 1. Dual anti-platelet therapy. 2. Risk factor modifications. 3. PCI of the RCA with adjunctive use of atherectomy due to extremely calcified right coronary artery. 4. Follow up with the patient. MMODL / IJN: [id number] /
[2020-03-15] MEDS: ATORVASTATIN 40 MG TAB PO SCH (20:51)
[2020-03-15] MEDS ORDERED: COLCHICIN-PROBENECID 0.5-500MG 1 EACH TAB PO STA (21:22)
[2020-03-15] MEDS: ZOLPIDEM 5 MG TAB PO PRN (21:56)
[2020-03-16 06:16] LABS: Glucose,Whole Blood 136 mg/dL (75-99)
[2020-03-16 06:36] LABS: Basophils % (A) 0 %; Eosinophils # (A) 0.1 k/uL (0-0.7); Eosinophils % (A) 2 %; HCT 47.7 % (39.0-53.0); HGB 16.3 gm/dL (13.0-17.5); Lymphocytes # (A) 0.7 k/uL (1.0-4.8); Lymphocytes % (A) 11 %; MCH 32.5 pg (25.0-35.0); MCHC 34.2 g/dL (31.0-37.0); MCV 95.2 fL (80.0-100.0); Mean Platelet Volume 7.9; Monocytes # (A) 0.5 k/uL (0-1.0); Monocytes % (A) 8 %; Neutrophils # (A) 4.6 k/uL (1.3-7.7); Neutrophils % (A) 76 %; Platelet Count 163 k/uL (150-450); RBC 5.01 m/uL (4.30-5.90); RDW 12.3 % (11.5-15.5)
[2020-03-16 06:45] LABS: African American GFR (CKD) >90 (>60 ml/min/1.73 sqM); Anion Gap 5 mmol/L; Blood Urea Nitrogen 15 mg/dL (9-20); Calcium 9.5 mg/dL (8.4-10.2); Carbon Dioxide 24 mmol/L (22-30); Chloride 104 mmol/L (98-107); Glucose 144 mg/dL (74-99); Non-African American GFR(CKD) >90 (>60 ml/min/1.73 sqM); Potassium 4.3 mmol/L (3.5-5.1); Sodium 133 mmol/L (137-145)
[2020-03-16] MEDS ORDERED: HEPARIN SODIUM,PORCINE 2,500 UNIT in SODIUM CHLORIDE 0.9% 250 ML IRRIGATION PRN (07:00)
[2020-03-16] MEDS ORDERED: HEPARIN SODIUM,PORCINE 10,000 UNIT in SODIUM CHLORIDE 0.9% 1,000 ML IRRIGATION PRN (07:00)
[2020-03-16] MEDS: CLOPIDOGREL 75 MG TAB PO SCH (08:55)
[2020-03-16] MEDS: METOPROLOL TARTRATE 25 MG TAB PO SCH ×2 (08:55→19:50)
[2020-03-16] MEDS: ASPIRIN 81 MG PO SCH (08:55)
[2020-03-16] MEDS: amLODIPine 10 MG TAB PO SCH (08:55)
[2020-03-16] MEDS: lisinopriL 10 MG TAB PO SCH (08:55)
--- NOTE | 2020-03-16 09:05 | P.PN ---
Subjective Progress Note Date: 03/16/20 Principal diagnosis: Abnormal cardiac enzymes This is a 60-year-old gentleman who is noncompliant with history of coronary artery disease and prior revascularization in the past as well as hypertension and dyslipidemia who was admitted to the hospital with a chest discomfort and ruled in for acute coronary syndrome. He underwent a heart catheterization yesterday and was found to have critical disease involving the left circumflex and OM system and also critical disease involving the right coronary artery. He underwent yesterday successful stenting of very complex lesion in the OM as well as LCx with a good angiographic results and without any complication. He still have critical disease involving very calcified right coronary artery. The patient was seen this morning. He states overall he is feeling better. He denies any symptoms of chest pain or chest discomfort at this point. The right groin is soft and nontender and without any bruises with a good pulse in the right foot. He is on dual antiplatelet therapy along with high intensity statin along with anti-ischemic medications. I had a long discussion with him regarding the importance of proceeding with PCI of the right coronary artery with adjunctive use of atherectomy and the patient would like to think about it and let me know later on today. Objective - Vital Signs Vital signs: Vital Signs Temp 98.3 F 03/16/20 03:18 Pulse 69 03/16/20 03:18 Resp 16 03/16/20 03:18 BP 151/84 03/16/20 03:18 Pulse Ox 95 03/16/20 03:18 Intake & Output 03/15/20 03/16/20 03/16/20 18:59 06:59 18:59 Intake Total 410 Balance 410 Weight 126.2 kg Intake: IV 170 Oral 240 Other: # Voids 1 2 - Constitutional General appearance: Present: no acute distress - Respiratory Respiratory: bilateral: CTA - Cardiovascular Rhythm: regular Heart sounds: normal: S1, S2 Abnormal Heart Sounds: Present: systolic murmur - Labs CBC & Chem 7: 03/16/20 06:05 03/16/20 06:05 Labs: Abnormal Lab Results - Last 24 Hours (Table) 03/16/20 03/16/20 03/16/20 Range/Units 06:05 06:05 06:05 Lymphocytes # 0.7 L (1.0-4.8) k/uL APTT 30.3 H (22.0-30.0) sec Sodium 133 L (137-145) mmol/L Glucose 144 H (74-99) mg/dL POC Glucose (mg/dL) (75-99) mg/dL 03/16/20 Range/Units 06:10 Lymphocytes # (1.0-4.8) k/uL APTT (22.0-30.0) sec Sodium (137-145) mmol/L Glucose (74-99) mg/dL POC Glucose (mg/dL) 136 H (75-99) mg/dL Assessment and Plan Assessment: Assessment #1 coronary artery disease and status post PCI of the LCx and OM #2 severe/critical residual disease involving the RCA which is fairly calcified #3 multiple comorbid conditions including hypertension and dyslipidemia #4 noncompliance Plan #1 continue the current medical regimen including dual antiplatelet therapy along with high intensity statin #2 proceed with PCI of the RCA with adjunctive use of atherectomy and temporary pacemaker if the patient is in agreement #3 follow-up on the echocardiogram
[2020-03-16] MEDS: ACETAMINOPHEN TAB 325 MG TAB PO PRN (09:38)
[2020-03-16] MEDS: COLCHICIN-PROBENECID 0.5-500MG 1 EACH TAB PO PRN ×2 (09:38→21:53)
--- NOTE | 2020-03-16 10:00 | ECHOF ---
Referral Reason:LV function, abnormal troponins MEASUREMENTS -------- HEIGHT: 180.3 cm WEIGHT: 127.0 kg BP: 136/84 RVIDd: 3.8 cm (< 3.3) IVSd: 1.4 cm (0.6 - 1.1) LVIDd: 6.4 cm (3.9 - 5.3) LVPWd: 1.4 cm (0.6 - 1.1) IVSs: 2.2 cm LVIDs: 4.2 cm LVPWs: 1.9 cm LA Diam: 3.7 cm (2.7 - 3.8) LAESV Index (A-L): 22.79 ml/m Ao Diam: 3.0 cm (2.0 - 3.7) AV Cusp: 1.7 cm (1.5 - 2.6) MV EXCURSION: 16.074 mm (> 18.000) MV EF SLOPE: 74 mm/s (70 - 150) EPSS: 0.9 cm MV E Chapin: 0.79 m/s MV DecT: 164 ms MV A Chapin: 0.65 m/s MV E/A Ratio: 1.21 RAP: 5.00 mmHg RVSP: 27.00 mmHg FINDINGS -------- Sinus rhythm. This was a technically difficult study with suboptimal views. The left ventricle is moderately dilated. There is moderate concentric left ventricular hypertrophy . Overall left ventricular systolic function is mild-moderately impaired with, an EF between 40 - 4 5 %. The right ventricle is mild to moderately enlarged. Normal LA size by volume 22+/-6 ml/m2. The right atrium is normal in size. Lumason used Interatrial and interventricular septum intact. The aortic valve is trileaflet and appears structurally normal. The mitral valve is normal. Mild mitral annular calcification present. Mild tricuspid regurgitation present. Right ventricular systolic pressure is normal at < 35 mmHg. Trace/mild (physiologic) pulmonic regurgitation. The aortic root size is normal. IVC Not well visulized. There is no pericardial effusion. CONCLUSIONS -------- 1. The left ventricle is moderately dilated. 2. There is moderate concentric left ventricular hypertrophy. 3. Overall left ventricular systolic function is mild-moderately impaired with, an EF between 40 - 45 %. 4. The right ventricle is mild to moderately enlarged. 5. Lumason used 6. Mild mitral annular calcification present. 7. Mild tricuspid regurgitation present. 8. Trace/mild (physiologic) pulmonic regurgitation. 9. There is no pericardial effusion. CARROT TIER: Mary Wolf RDCS
[2020-03-16 10:59] VITALS: BMI 36.7
--- NOTE | 2020-03-16 11:15 | P.PN ---
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 Chest x-ray showed mild interstitial disease hemoglobin was 17.8 hematocrit 8 is elevated troponin was 0.17 to. Patient blood pressure was a bit elevated the time was stabilized started on heparin drip diagnosed with non-ST NC will be seeing cardiology and still nothing by mouth for possible heart cath. 03/15: Patient evaluated this morning, resting in bed comfortably in no acute distress. Patient denies any further episodes of chest pain or shortness of breath. Patient refused to undergo cardiac catheterization yesterday. Had lengthy discussion with patient today, he is now agreeable to cardiac catheterization. Patient continues on aspirin, Plavix along with metoprolol and heparin drip. Cardiology on consult, will discuss cardiac catheterization with patient today. 03/16: Patient underwent cardiac catheterization yesterday, he was found to have a critical disease involving the left circumflex and OM system and also critical disease involving the right coronary artery. He underwent successful stenting of the lesion of the OM as well as left circumflex coronary artery. Patient still has critical disease involving the right coronary artery. Patient will need PCI of the right coronary artery with adjunctive use of arthrectomy and temporary pacemaker. Cardiology plans for this tomorrow if patient is agreea ble. Patient did complain of left heel pain, he has good pedal pulse, no concerns for thrombus, most likely a gout attack, he was started on colchicine last night and reports pain is much better today. Objective - Vital Signs Vital signs: Vital Signs Temp 98.3 F 03/16/20 03:18 Pulse 69 03/16/20 03:18 Resp 16 03/16/20 03:18 BP 151/84 03/16/20 03:18 Pulse Ox 95 03/16/20 03:18 Intake & Output 03/15/20 03/16/20 03/16/20 18:59 06:59 18:59 Intake Total 410 Balance 410 Weight 126.2 kg 126.2 kg Intake: IV 170 Oral 240 Other: # Voids 1 2 - Exam Constitutional General appearance: Present: cooperative, no acute distress, obese. - EENT Eyes: Present: EOMI, PERRLA, normal appearance ENT: Present: hearing grossly normal, normal oropharynx. Absent: thrush - Neck Neck: Present: normal ROM. Absent: lymphadenopathy, rigidity, thyromegaly - Respiratory Respiratory: bilateral: CTA, negative: diminished, dullness, rales, rhonchi, wheezing - Cardiovascular Rhythm: regular Heart sounds: normal: S1, S2 - Gastrointestinal General gastrointestinal: Present: normal bowel sounds, soft. Absent: distended, hepatomegaly, organomegaly, splenomegaly, tenderness - Integumentary Integumentary: Present: normal. Absent: pale, rash, ulcer - Neurologic Neurologic: Present: CNII-XII intact. Absent: focal deficits - Musculoskeletal Musculoskeletal: Present: gait normal, strength equal bilaterally. Absent: right sided weakness, left sided weakness - Psychiatric Psychiatric: Present: A&O x's 3, appropriate affect, intact judgment & insight - Labs CBC & Chem 7: 03/16/20 06:05 03/16/20 06:05 Labs: Abnormal Lab Results - Last 24 Hours (Table) 03/16/20 03/16/20 03/16/20 Range/Units 06:05 06:05 06:05 Lymphocytes # 0.7 L (1.0-4.8) k/uL APTT 30.3 H (22.0-30.0) sec Sodium 133 L (137-145) mmol/L Glucose 144 H (74-99) mg/dL POC Glucose (mg/dL) (75-99) mg/dL 03/16/20 Range/Units 06:10 Lymphocytes # (1.0-4.8) k/uL APTT (22.0-30.0) sec Sodium (137-145) mmol/L Glucose (74-99) mg/dL POC Glucose (mg/dL) 136 H (75-99) mg/dL Assessment and Plan Plan: 1 non-ST NC: Patient was hospitalized will continue heparin drip, continue nitro, consult cardiology, patient underwent PCI of the LCx and OM, will still need PCI of the RCA, cardiology plans on this for tomorrow if patient is agreeable 2 recurrent unstable angina: With known history of coronary disease 3 hypertension: resume lisinopril at 40 mg a day along with amlodipine 10 mg daily. 4 hyperlipidemia: I agree with atorvastatin 40 mg daily. 5 BPH: Watch for any urinary retention. 6 chronic history of psoriasis: Patient has been on biological agent as an injection every 60 days. 7 history of gout with acute attack. On colchicine, better today 8 hyperglycemia: On diet control Accu-Chek sliding coverage and be done. 9 possible obstructive sleep apnea with mostly secondary polycythemia patient will require sleep study. 10 GI prophylaxis: Patient is protonic 40 mg daily. 11 DVT prophylaxis: Patient is on heparin drip currently. Next CODE STATUS: Full code. Admit patient to inpatient status more than 2 night stay. The above impression and plan of care have been discussed and directed by signing physician. Dianne Craig nurse practitioner acting as scribe for signing physician.
[2020-03-16 12:27] LABS: Glucose,Whole Blood 103 mg/dL (75-99)
[2020-03-16 17:05] LABS: Glucose,Whole Blood 149 mg/dL (75-99)
[2020-03-16] MEDS: ATORVASTATIN 40 MG TAB PO SCH (20:22)
[2020-03-16 20:27] LABS: Glucose,Whole Blood 105 mg/dL (75-99)
[2020-03-16] MEDS: ZOLPIDEM 5 MG TAB PO PRN (21:52)
[2020-03-17] MEDS: ASPIRIN 81 MG PO SCH (06:08)
[2020-03-17] MEDS: amLODIPine 10 MG TAB PO SCH (06:08)
[2020-03-17] MEDS: lisinopriL 10 MG TAB PO SCH (06:08)
[2020-03-17] MEDS: CLOPIDOGREL 75 MG TAB PO SCH (06:08)
[2020-03-17] MEDS: METOPROLOL TARTRATE 25 MG TAB PO SCH ×2 (06:08→19:58)
[2020-03-17 07:46] LABS: Basophils % (A) 1 %; Eosinophils # (A) 0.2 k/uL (0-0.7); Eosinophils % (A) 4 %; HCT 47.8 % (39.0-53.0); HGB 16.2 gm/dL (13.0-17.5); Lymphocytes # (A) 0.9 k/uL (1.0-4.8); Lymphocytes % (A) 16 %; MCH 32.5 pg (25.0-35.0); MCV 95.6 fL (80.0-100.0); Mean Platelet Volume 7.7; Monocytes # (A) 0.5 k/uL (0-1.0); Monocytes % (A) 8 %; Neutrophils # (A) 3.9 k/uL (1.3-7.7); Neutrophils % (A) 70 %; Platelet Count 174 k/uL (150-450); RDW 12.3 % (11.5-15.5); WBC 5.6 k/uL (3.8-10.6)
[2020-03-17 07:51] LABS: African American GFR (CKD) >90 (>60 ml/min/1.73 sqM); Anion Gap 6 mmol/L; Blood Urea Nitrogen 15 mg/dL (9-20); Calcium 9.8 mg/dL (8.4-10.2); Carbon Dioxide 26 mmol/L (22-30); Chloride 103 mmol/L (98-107); Glucose 142 mg/dL (74-99); Non-African American GFR(CKD) >90 (>60 ml/min/1.73 sqM); Potassium 4.5 mmol/L (3.5-5.1); Sodium 135 mmol/L (137-145)
--- NOTE | 2020-03-17 09:42 | P.PN ---
Subjective Progress Note Date: 03/17/20 Principal diagnosis: Abnormal cardiac enzymes This is a 60-year-old gentleman who is noncompliant with history of coronary artery disease and prior revascularization in the past as well as hypertension and dyslipidemia who was admitted to the hospital with a chest discomfort and ruled in for acute coronary syndrome. He underwent a heart catheterization yesterday and was found to have critical disease involving the left circumflex and OM system and also critical disease involving the right coronary artery. He underwent yesterday successful stenting of very complex lesion in the OM as well as LCx with a good angiographic results and without any complication. He still have critical disease involving very calcified right coronary artery. The patient was seen this morning. I had a long discussion with him regarding the procedure which is going to be done today which include an atherectomy and PCI of the right coronary artery. I told the patient that the procedure carries high-risk any standard coronary stenting because of the adjunctive use of atherectomy. He is in full understanding and agreement. Objective - Vital Signs Vital signs: Vital Signs Temp 98.2 F 03/17/20 00:00 Pulse 61 03/17/20 04:00 Resp 16 03/17/20 04:00 BP 164/76 03/17/20 04:00 Pulse Ox 97 03/17/20 04:00 Intake & Output 03/16/20 03/17/20 03/17/20 18:59 06:59 18:59 Intake Total 780 Balance 780 Weight 126.2 kg 125.5 kg Intake: Oral 780 Other: # Voids 2 1 - Constitutional General appearance: Present: no acute distress - Respiratory Respiratory: bilateral: CTA - Cardiovascular Rhythm: regular Heart sounds: normal: S1, S2 - Labs CBC & Chem 7: 03/17/20 07:16 03/17/20 07:16 Labs: Abnormal Lab Results - Last 24 Hours (Table) 03/16/20 03/16/20 03/16/20 Range/Units 12:05 16:51 20:26 Lymphocytes # (1.0-4.8) k/uL Sodium (137-145) mmol/L Glucose (74-99) mg/dL POC Glucose (mg/dL) 103 H 149 H 105 H (75-99) mg/dL 03/17/20 03/17/20 Range/Units 07:16 07:16 Lymphocytes # 0.9 L (1.0-4.8) k/uL Sodium 135 L (137-145) mmol/L Glucose 142 H (74-99) mg/dL POC Glucose (mg/dL) (75-99) mg/dL Assessment and Plan Assessment: Assessment #1 coronary artery disease and status post PCI of the LCx and OM #2 severe/critical residual disease involving the RCA which is fairly calcified #3 multiple comorbid conditions including hypertension and dyslipidemia #4 noncompliance Plan #1 continue the current medical regimen including dual antiplatelet therapy along with high intensity statin #2 proceed with PCI of the RCA with adjunctive use of atherectomy and temporary pacemaker #3 follow-up on the echocardiogram
[2020-03-17] MEDS ORDERED: LIDOCAINE 1% INJ 10MG/ML (20 ML MDV) ONE ×2 (10:07)
[2020-03-17] MEDS ORDERED: IV FLUID CONTINUATION 1,000 ML IV ONE (10:30)
[2020-03-17] MEDS ORDERED: LIDOCAINE 1% INJ 10MG/ML (20 ML MDV) SQ ONE (10:45)
[2020-03-17] MEDS ORDERED: MIDAZOLAM 2 MG/2 ML VIAL IV ONE (10:45)
[2020-03-17] MEDS ORDERED: HYDROmorphone 1 MG/ML 1 ML SYRINGE ONE (10:50)
[2020-03-17] MEDS ORDERED: HYDROmorphone 1 MG/ML 1 ML SYRINGE IVP ONE (10:52)
[2020-03-17] MEDS: HEPARIN SODIUM 1,000 UN/ML (10ML VL) IV ONE ×2 (10:55→11:15)
[2020-03-17] MEDS ORDERED: fentaNYL (PF) 50 MCG/ML 2 ML AMP ONE (11:01)
[2020-03-17] MEDS ORDERED: niCARdipine 25 MG/10 ML VIAL ONE (11:06)
[2020-03-17] MEDS: fentaNYL (PF) 50 MCG/ML 2 ML AMP IV ONE ×2 (11:07→11:38)
[2020-03-17] MEDS: NITROGLYCERIN 1000MCG/10ML SYRINGE INTRACORON ONE ×3 (11:15→11:51)
--- NOTE | 2020-03-17 11:48 | P.PN ---
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 Chest x-ray showed mild interstitial disease hemoglobin was 17.8 hematocrit 8 is elevated troponin was 0.17 to. Patient blood pressure was a bit elevated the time was stabilized started on heparin drip diagnosed with non-ST [place] will be seeing cardiology and still nothing by mouth for possible heart cath. 03/15: Patient evaluated this morning, resting in bed comfortably in no acute distress. Patient denies any further episodes of chest pain or shortness of breath. Patient refused to undergo cardiac catheterization yesterday. Had lengthy discussion with patient today, he is now agreeable to cardiac catheterization. Patient continues on aspirin, Plavix along with metoprolol and heparin drip. Cardiology on consult, will discuss cardiac catheterization with patient today. 03/16: Patient underwent cardiac catheterization yesterday, he was found to have a critical disease involving the left circumflex and OM system and also critical disease involving the right coronary artery. He underwent successful stenting of the lesion of the OM as well as left circumflex coronary artery. Patient still has critical disease involving the right coronary artery. Patient will need PCI of the right coronary artery with adjunctive use of arthrectomy and temporary pacemaker. Cardiology plans for this tomorrow if patient is agreea ble. Patient did complain of left heel pain, he has good pedal pulse, no concerns for thrombus, most likely a gout attack, he was started on colchicine last night and reports pain is much better today. 03/17: A Chin evaluated this morning, resting in bed comfortably, in no acute distress. Patient denies any further episodes of chest pain or shortness of breath. Patient underwent cardiac catheterization on the with stenting of the OM as well as the LCx, patient still had critical disease involving the right coronary artery. Patient be taken back to the r&d lab technician today to undergo PCI of the right coronary artery with adjunctive use of arthrectomy and temporary pacemaker. Objective - Vital Signs Vital signs: Vital Signs Temp 98.0 F 03/17/20 08:00 Pulse 50 L 03/17/20 08:00 Resp 16 03/17/20 04:00 BP 161/76 03/17/20 08:00 Pulse Ox 96 03/17/20 08:00 Intake & Output 03/16/20 03/17/20 03/17/20 18:59 06:59 18:59 Intake Total 780 200 Balance 780 200 Weight 126.2 kg 125.5 kg Intake: IV 200 Oral 780 Other: # Voids 2 1 - Exam Constitutional General appearance: Present: cooperative, no acute distress, obese - EENT Eyes: Present: EOMI, PERRLA, normal appearance ENT: Present: hearing grossly normal, normal oropharynx. Absent: thrush - Neck Neck: Present: normal ROM. Absent: lymphadenopathy, rigidity, thyromegaly - Respiratory Respiratory: bilateral: CTA, negative: diminished, dullness, rales, rhonchi, wheezing - Cardiovascular Rhythm: regular Heart sounds: normal: S1, S2 - Gastrointestinal General gastrointestinal: Present: normal bowel sounds, soft. Absent: distended, hepatomegaly, organomegaly, splenomegaly, tenderness - Integumentary Integumentary: Present: normal. Absent: pale, rash, ulcer - Neurologic Neurologic: Present: CNII-XII intact. Absent: focal deficits - Musculoskeletal Musculoskeletal: Present: gait normal, strength equal bilaterally. Absent: right sided weakness, left sided weakness - Psychiatric Psychiatric: Present: A&O x's 3, appropriate affect, intact judgment & insight - Labs CBC & Chem 7: 03/17/20 07:16 03/17/20 07:16 Labs: Abnormal Lab Results - Last 24 Hours (Table) 03/16/20 03/16/20 03/16/20 Range/Units 12:05 16:51 20:26 Lymphocytes # (1.0-4.8) k/uL Sodium (137-145) mmol/L Glucose (74-99) mg/dL POC Glucose (mg/dL) 103 H 149 H 105 H (75-99) mg/dL 12/30/20 12/30/20 Range/Units 07:16 07:16 Lymphocytes # 0.9 L (1.0-4.8) k/uL Sodium 135 L (137-145) mmol/L Glucose 142 H (74-99) mg/dL POC Glucose (mg/dL) (75-99) mg/dL Assessment and Plan Plan: 1 non-ST [place]: Patient was hospitalized will continue heparin drip, continue nitro, consult cardiology, patient underwent PCI of the LCx and OM, will still need PCI of the RCA, cardiology plans on this for later on today 2 recurrent unstable angina: With known history of coronary disease 3 hypertension: resume lisinopril at 40 mg a day along with amlodipine 10 mg daily. 4 hyperlipidemia: I agree with atorvastatin 40 mg daily. 5 BPH: Watch for any urinary retention. 6 chronic history of psoriasis: Patient has been on biological agent as an injection every 60 days. 7 history of gout with acute attack. On colchicine, better today 8 hyperglycemia: On diet control Accu-Chek sliding coverage and be done. 9 possible obstructive sleep apnea with mostly secondary polycythemia patient will require sleep study. 10 GI prophylaxis: Patient is protonic 40 mg daily. 11 DVT prophylaxis: Patient is on heparin drip currently. Next CODE STATUS: Full code. Admit patient to inpatient status more than 2 night stay. The above impression and plan of care have been discussed and directed by matthew duff physician. Dianne Craig nurse practitioner acting as scribe for signing physician.
[2020-03-17] MEDS ORDERED: niCARdipine Syringe (1,000 mcg/10 mL) INTRACORON ONE (11:51)
[2020-03-17] MEDS ORDERED: CLOPIDOGREL 75 MG TAB ONE (11:52)
[2020-03-17] MEDS ORDERED: CLOPIDOGREL 75 MG TAB PO ONE (11:53)
[2020-03-17] MEDS ORDERED: IOPAMIDOL-370 125ML BTL INJ ONE (11:53)
[2020-03-17] MEDS ORDERED: HEPARIN SODIUM 1,000 UN/ML (10ML VL) ONE (11:59)
[2020-03-17] MEDS ORDERED: ATROPINE SULFATE 0.1 MG/ML 10ML SYRINGE IV PRN (12:01)
[2020-03-17] MEDS ORDERED: RX INFO: IV CONTRAST WAS GIVEN 1 EACH MISC MISCELLANE PRN (12:01)
[2020-03-17] MEDS ORDERED: ZOLPIDEM 5 MG TAB PO PRN (12:01)
[2020-03-17] MEDS ORDERED: NITROGLYCERIN SL TABS 0.4 MG TAB SUBLINGUAL PRN (12:01)
[2020-03-17] MEDS ORDERED: MAG HYDROX/AL HYDROX/SIMETH 30 ML CUP PO PRN (12:01)
[2020-03-17] MEDS ORDERED: SODIUM CHLORIDE 0.9% 1,000 ML IV SCH (12:15)
--- NOTE | 2020-03-17 12:48 | PTCA ---
PERCUTANEOUSTRANS CORORONARY ANGIOGRAPHY PERCUTANEOUS CORONARY INTERVENTION: DATE OF SERVICE: March 17, 2020. PERFORMING PHYSICIAN: Luis Adams MD. PROCEDURE PERFORMED: 1. Atherectomy of the right coronary artery using the orbital atherectomy device from [employer]. 2. Successful stenting of the right coronary artery using 3.5 x 33 and 3.5 x 15 mm Xience drug-eluting stents of extremely challenging calcified and eccentric lesion involving the right coronary artery with an excellent angiographic result and reduction of stenosis from 99% to 0%. INDICATION: This is a very pleasant 60-year-old gentleman with coronary artery disease and prior coronary artery revascularization, who was admitted to the hospital with chest discomfort and ruled in for acute coronary syndrome. He underwent a heart catheterization [address] Pulido and that revealed critical disease involving the left circumflex/OM as well as critical disease involving the right coronary artery. The patient underwent successful stenting of the left circumflex OM and he was brought today to undergo intervention on the right coronary artery. APPROACH: Right common femoral artery and right common femoral vein. COMPLICATION: None. LEVEL OF SEDATION: Moderate with sedation length of 60 minutes. PROCEDURE: After obtaining an informed consent, the patient was brought to the cardiac flue dust laborer. The right common femoral vein was cannulated using micropuncture technique, the micropuncture wire passed easily then I placed a 6-Hungarian sheath. The right common femoral artery was also cannulated using micropuncture technique, the micropuncture wire passed easily then I placed a 6-Hungarian sheath in the right common femoral artery. Anticoagulation was achieved with heparin with continuous ACT monitoring throughout the procedure. The patient initially given 6000 units of heparin and additional 2000 given during the procedure. Under fluoroscopy guidance, transvenous temporary pacemaker from the right common femoral vein was advanced to the right ventricle. The temporary pacemaker was left under a backup heart rate of 60 and amp of 5. The RCA was engaged using JR4 guide. The RCA was wired using the [employer] Advantage wire. Atherectomy of the RCA was achieved using the orbital atherectomy device from [employer] and using 3 runs under low speed. Balloon angioplasty subsequently was performed using 3.0 x 15 mm balloon. Attempting advancing a 3.5 x 33 mm Xience drug-eluting stent was unsuccessful. That was unsuccessful in spite of using [employer]. At that point, I decided to go ahead and wire the RCA using a juju wire which was a run-through wire. With that I was unable to advance the stent. At that point, I did balloon angioplasty again of the right coronary artery using 3.5 mm balloon this time and was noncompliant balloon and subsequently 3.0 balloon because there was very tight lesion in the mid to distal right coronary artery did not open well with a 3.5 balloon. After that I was able to advance a 3.5 x 33 mm Xience drug-eluting stent where the stent was positioned under fluoroscopy guidance and deployed under its nominal pressure. The following angiogram showed dissection in the proximal portion of the RCA just proximal to the stent was deployed. I decided to cover that with a stent. I deployed 3.5 x 15 mm another Xience drug-eluting stent. The stent was deployed under fluoroscopic guidance and under 12 atmospheres. The final angiogram showed excellent angiographic results and the procedure was completed without any complication. POSTPROCEDURE MANAGEMENT: 1. Dual anti-platelet therapy. 2. Risk factor modifications. 3. We will follow up with the patient. BANDAR / WELLINGTONN: [id number] /
[2020-03-17] MEDS: ACETAMINOPHEN TAB 325 MG TAB PO PRN (19:58)
[2020-03-17] MEDS: ATORVASTATIN 40 MG TAB PO SCH (19:58)
[2020-03-17] MEDS: COLCHICIN-PROBENECID 0.5-500MG 1 EACH TAB PO PRN (20:59)
[2020-03-18 05:10] VITALS: RESP 17
[2020-03-18 08:04] LABS: Basophils % (A) 1 %; Eosinophils # (A) 0.2 k/uL (0-0.7); Eosinophils % (A) 4 %; HCT 49.6 % (39.0-53.0); HGB 16.9 gm/dL (13.0-17.5); Lymphocytes # (A) 0.7 k/uL (1.0-4.8); Lymphocytes % (A) 15 %; MCH 32.5 pg (25.0-35.0); MCHC 34.1 g/dL (31.0-37.0); MCV 95.3 fL (80.0-100.0); Mean Platelet Volume 7.4; Monocytes # (A) 0.4 k/uL (0-1.0); Monocytes % (A) 8 %; Neutrophils # (A) 3.6 k/uL (1.3-7.7); Neutrophils % (A) 71 %; Platelet Count 164 k/uL (150-450); RDW 12.2 % (11.5-15.5); WBC 5.1 k/uL (3.8-10.6)
[2020-03-18 08:27] LABS: ALT 57 U/L (4-49); AST 44 U/L (17-59); African American GFR (CKD) >90 (>60 ml/min/1.73 sqM); Alkaline Phosphatase 65 U/L (38-126); Anion Gap 5 mmol/L; Blood Urea Nitrogen 15 mg/dL (9-20); Calcium 9.7 mg/dL (8.4-10.2); Carbon Dioxide 26 mmol/L (22-30); Chloride 103 mmol/L (98-107); Glucose 134 mg/dL (74-99); Non-African American GFR(CKD) >90 (>60 ml/min/1.73 sqM); Potassium 4.5 mmol/L (3.5-5.1); Sodium 134 mmol/L (137-145)
--- NOTE | 2020-03-18 08:32 | P.PN ---
Subjective Progress Note Date: 03/18/20 Principal diagnosis: Abnormal cardiac enzymes This is a 60-year-old gentleman who is noncompliant with history of coronary artery disease and prior revascularization in the past as well as hypertension and dyslipidemia who was admitted to the hospital with a chest discomfort and ruled in for acute coronary syndrome. He underwent a heart catheterization yesterday and was found to have critical disease involving the left circumflex and OM system and also critical disease involving the right coronary artery. He underwent yesterday successful stenting of very complex lesion in the OM as well as LCx with a good angiographic results and without any complication. He still have critical disease involving very calcified right coronary artery. He underwent yesterday PCI of the RCA The patient was seen today. He is asymptomatic. The right groin is soft and nontender and without any bruises. The pressure continues to be elevated and I'm going to increase the dose of lisinopril to 10 mg by mouth twice a day. From a cardiovascular standpoint of view, the patient can be discharged home. Objective - Vital Signs Vital signs: Vital Signs Temp 98.1 F 03/18/20 04:00 Pulse 73 03/18/20 04:00 Resp 17 03/18/20 04:00 BP 158/77 03/18/20 04:00 Pulse Ox 95 03/18/20 04:00 Intake & Output 03/17/20 03/18/20 03/18/20 18:59 06:59 18:59 Intake Total 200 200 Output Total 600 Balance -400 200 Weight 124.7 kg Intake: IV 200 Oral 200 Output: Urine 600 Other: Voiding Method Toilet # Voids 1 - Constitutional General appearance: Present: no acute distress - Respiratory Respiratory: bilateral: CTA - Cardiovascular Rhythm: regular Heart sounds: normal: S1, S2 - Labs CBC & Chem 7: 03/18/20 07:31 03/18/20 07:31 Labs: Abnormal Lab Results - Last 24 Hours (Table) 03/18/20 03/18/20 Range/Units 07:31 07:31 Lymphocytes # 0.7 L (1.0-4.8) k/uL Sodium 134 L (137-145) mmol/L Glucose 134 H (74-99) mg/dL ALT 57 H (4-49) U/L Assessment and Plan Assessment: Assessment #1 coronary artery disease and status post PCI of the LCx and OM #2 severe/critical residual disease involving the RCA which is fairly calcified #3 multiple comorbid conditions including hypertension and dyslipidemia #4 noncompliance Plan #1 continue the current medical regimen #2 increase the dose of lisinopril #3 the patient can be discharged home
[2020-03-18] MEDS ORDERED: lisinopriL 10 MG TAB PO SCH (09:00)
[2020-03-18] MEDS: CLOPIDOGREL 75 MG TAB PO SCH (09:08)
[2020-03-18] MEDS: ASPIRIN 81 MG PO SCH (09:08)
[2020-03-18] MEDS: METOPROLOL TARTRATE 25 MG TAB PO SCH (09:08)
[2020-03-18] MEDS: amLODIPine 10 MG TAB PO SCH (09:08)
[2020-03-18 10:34] VITALS: BP 134/68; PULSE 68; TEMP 96.2
--- NOTE | 2020-03-18 11:25 | P.DS ---
Providers Date of admission: 03/14/20 02:53 Expected date of discharge: 03/18/20 Attending physician: Joshua Devlin Consults: 03/14/20 02:53 Consult Physician Urgent Consulting Provider: Cooper Magana Consult Reason/Comments: Acute coronary syndrome Do you want consulting provider notified?: Already Contacted 03/15/20 13:40 Consult Physician Routine Consulting Provider: Heather Chin Consult Reason/Comments: Post Interventional patient Do you want consulting provider notified?: Already Contacted 03/17/20 12:01 Consult Physician Routine Consulting Provider: Heather Chin Consult Reason/Comments: Post Interventional patient Do you want consulting provider notified?: Already Contacted Primary care physician: [facility] Course: 60-year-old morbidly obese male who was start seen recently as a new patient was on to have past medical history of CAD post PCI and stent placement over 6 years ago who has also history of nicotine dependency, hypertension, hyperlipidemia and hyperglycemia 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 Chest x-ray showed mild interstitial disease hemoglobin was 17.8 hematocrit 8 is elevated troponin was 0.17 to. Patient blood pressure was a bit elevated the time was stabilized started on heparin drip diagnosed with non-ST [place] will be seeing cardiology and still nothing by mouth for possible heart cath. 03/15: Patient evaluated this morning, resting in bed comfortably in no acute distress. Patient denies any further episodes of chest pain or shortness of breath. Patient refused to undergo cardiac catheterization yesterday. Had lengthy discussion with patient today, he is now agreeable to cardiac catheterization. Patient continues on aspirin, Plavix along with metoprolol and heparin drip. Cardiology on consult, will discuss cardiac catheterization with patient today. 03/16: Patient underwent cardiac catheterization yesterday, he was found to have a critical disease involving the left circumflex and OM system and also critical disease involving the right coronary artery. He underwent successful stenting of the lesion of the OM as well as left circumflex coronary artery. Patient still has critical disease involving the right coronary artery. Patient will need PCI of the right coronary artery with adjunctive use of arthrectomy and temporary pacemaker. Cardiology plans for this tomorrow if patient is agreeable. Patient did complain of left heel pain, he has good pedal pulse, no concerns for thrombus, most likely a gout attack, he was started on colchicine last night and reports pain is much better today. 03/17: A Chin evaluated this morning, resting in bed comfortably, in no acute distress. Patient denies any further episodes of chest pain or shortness of breath. Patient underwent cardiac catheterization on the with stenting of the OM as well as the LCx, patient still had critical disease involving the right coronary artery. Patient be taken back to the laboratory technical specialist today to undergo PCI of the right coronary artery with adjunctive use of arthrectomy and temporary pacemaker. 03/18: Patient was evaluated this morning. Patient underwent PCI of the RCA yesterday, he was found to have severe/critical residual disease involving the RCA which was very calcified. Patient tolerated the procedure well without any palpitations. Patient will be discharged home with follow-up with his primary care physician and cardiology. Discharge diagnoses 1 non-ST [place] 2 recurrent unstable angina 3 hypertension 4 hyperlipidemia 5 BPH 6 chronic history of psoriasis 7 history of gout with acute attack 8 hyperglycemia 9 possible obstructive sleep apnea with mostly secondary polycythemia patient will require sleep study. The above impression and plan of care have been discussed and directed by signing physician. Dianne Craig nurse practitioner acting as scribe for signing physician. Patient Condition at Discharge: Good Plan - Discharge Summary Discharge Rx Participant: No New Discharge Prescriptions: New Aspirin 81 mg PO DAILY chew Atorvastatin [Lipitor] 40 mg PO HS #30 tab Metoprolol Tartrate [Lopressor] 25 mg PO BID #60 tab Nitroglycerin Sl Tabs [Nitrostat] 0.4 mg SUBLINGUAL Q5M PRN #15 tab PRN Reason: Chest Pain Clopidogrel [Plavix] 75 mg PO DAILY #30 tab Acetaminophen Tab [Tylenol] 650 mg PO Q6HR PRN tab PRN Reason: Fever And/ Or Pain Continue Probenecid/Colchicine [Probenecid-Colchicine Tablet] 1 tab PO BID PRN PRN Reason: GOUT lisinopriL [Zestril] 40 mg PO DAILY amLODIPine [Norvasc] 10 mg PO DAILY Guselkumab [Tremfya] 100 mg SQ Q60D Naproxen Sodium [Aleve] 440 mg PO BID Discharge Medication List Guselkumab [Tremfya] 100 mg SQ Q60D 03/14/20 [History] Probenecid/Colchicine [Probenecid-Colchicine Tablet] 1 tab PO BID PRN 03/14/20 [History] amLODIPine [Norvasc] 10 mg PO DAILY 03/14/20 [History] lisinopriL [Zestril] 40 mg PO DAILY 03/14/20 [History] Naproxen Sodium [Aleve] 440 mg PO BID 03/15/20 [History] Acetaminophen Tab [Tylenol] 650 mg PO Q6HR PRN tab 03/18/20 [Rx] Aspirin 81 mg PO DAILY chew 03/18/20 [Rx] Atorvastatin [Lipitor] 40 mg PO HS #30 tab 03/18/20 [Rx] Clopidogrel [Plavix] 75 mg PO DAILY #30 tab 03/18/20 [Rx] Metoprolol Tartrate [Lopressor] 25 mg PO BID #60 tab 03/18/20 [Rx] Nitroglycerin Sl Tabs [Nitrostat] 0.4 mg SUBLINGUAL Q5M PRN #15 tab 03/18/20 [Rx] Follow up Appointment(s)/Referral(s): Rehab Debra MORALEZ,Cardiac [NON-STAFF] - 1 Week (After discharge, you will follow- up with your jacker feeder. Once you have obtained a prescription for cardiac rehab, please call [phone] to set up an evaluation.) Luis Adams MD [STAFF PHYSICIAN] - 1 Week Joshua Devlin MD [Primary Care Provider] - 1-2 days Patient Instructions/Handouts: *Surgery [facility] - After Heart Catheterization - [place] [employer] Instructions Discharge Disposition: HOME SELF-CARE
--- NOTE | 2020-03-25 09:59 | CDI ---
Documentation Clarification Form Date: 03/25/2020 09:22:41 AM From: Trupti Sherman RN CCDS Admit Date: 03/14/2020 02:53:00 AM Patient Name: Avinash Sanchez Visit Number: [id number] Discharge Date: 03/18/2020 11:22:00 AM ATTENTION: The Clinical Documentation Specialists (CDI) and [facility] Coding Staff appreciate your assistance in clarifying documentation. Please respond to the clarification below the line at the bottom and electronically sign. The CDI & [facility] Coding staff will review the response and follow-up if needed. Please note: Queries are made part of the Legal Health Record. If you have any questions, please contact the author of this message via ITS. Dr. Luis Adams The following angiogram showed dissection in the proximal portion of the RCA just proximal to the stent was deployed. Documented in PTCA 03/17 Patients Admitting Diagnosis: NON-ST [place] Post-Operative Diagnosis: Reduction of stenosis from 99% to 0% right coronary artery. Procedure performed: Atherectomy of the right coronary artery using the orbital atherectomy device from [employer]. Successful stenting of the right coronary artery using 3.5 x 33 and 3.5 x 15mm Xience drug eluting stents of extremely challenging calcified and eccentric lesion involving the right coronary artery with an excellent angiographic result. History/Risk Factors: 60-year-old male presented to the ED with midsternal chest pain radiating toward both shoulder area arm and shortness of breath. Medical History: CAD with stents 6 years ago. Nicotine dependency, HLD, HTN and hyperglycemia. Clinical Indicators: PTCA 03/17: "The following angiogram showed dissection in the proximal portion of the RCA just proximal to the stent was deployed. PTCA 03/17 The final angiogram showed excellent angiographic results and the procedure was completed without any complication. Treatment: Stent per documentation in PTCA 03/17 The following angiogram showed dissection in the proximal portion of the RCA just proximal to the stent was deployed. I decided to cover that with a stent. In order to accurately reflect this patients severity of illness, please clarify if the dissection: -is a complication of surgical procedure -is an expected outcome of the surgical procedure -is related to co-morbid condition(s) of -Other please specify -Unable to determine (Last Revision: April 2019) SEE SCANNED COPY OF THIS DOCUMENT WITH RESPONSE AND PHYSICIAN SIGNATURE. MTDD
== END 2020-03-18 11:22 | disposition home or self-care (01) | DRG 246 ==
LOC: EC 01:03 → 3SCARD 02:53
PROVIDERS: ADMIT Internal Medicine Geriatric Medicine; ATTEND Internal Medicine Geriatric Medicine
PROC: 027135Z Dilation of Coronary Artery, Two Arteries with Two Drug-eluting Intraluminal Devices, Percutaneous Approach (ICD-10-PCS; principal; 2020-03-15 13:45)
PROC: 4A023N7 Measurement of Cardiac Sampling and Pressure, Left Heart, Percutaneous Approach (ICD-10-PCS; 2020-03-15 13:45)
PROC: B2111ZZ Fluoroscopy of Multiple Coronary Arteries using Low Osmolar Contrast (ICD-10-PCS; 2020-03-15 13:45)
PROC: X2C0361 Extirpation of Matter from Coronary Artery, One Artery using Orbital Atherectomy Technology, Percutaneous Approach, New Technology Group 1 (ICD-10-PCS; 2020-03-17)
PROC: 027035Z Dilation of Coronary Artery, One Artery with Two Drug-eluting Intraluminal Devices, Percutaneous Approach (ICD-10-PCS; 2020-03-17)
DX: I21.4 Non-ST elevation (NSTEMI) myocardial infarction (principal); I25.42 Coronary artery dissection; T81.719A Complication of unspecified artery following a procedure, not elsewhere classified, initial encounter; F17.200 Nicotine dependence, unspecified, uncomplicated; E78.5 Hyperlipidemia, unspecified; I10 Essential (primary) hypertension; N40.0 Benign prostatic hyperplasia without lower urinary tract symptoms; I44.7 Left bundle-branch block, unspecified; M10.9 Gout, unspecified; L40.9 Psoriasis, unspecified; G47.33 Obstructive sleep apnea (adult) (pediatric); D75.1 Secondary polycythemia; R73.9 Hyperglycemia, unspecified; I25.110 Atherosclerotic heart disease of native coronary artery with unstable angina pectoris; Z79.899 Other long term (current) drug therapy; Z91.19 Patient's noncompliance with other medical treatment and regimen; Z95.5 Presence of coronary angioplasty implant and graft; Z98.890 Other specified postprocedural states; I25.2 Old myocardial infarction
CPT/HCPCS: 36415; 71045; 80048; 80053; 80061; 82150; 83690; 83735; 84484; 85025; 85379; 85610; 85730; 93005; 93306; 93458; 96374; 96376; 99291

== ENCOUNTER 2021-06-12 02:09 | Inpatient (IN) | payer BC ==
--- NOTE | 2021-06-12 02:31 | ED ---
Chest Pain HPI - General Chief Complaint: Chest Pain Stated Complaint: chest pain Time Seen by Provider: 06/12/21 02:17 Source: patient, family, RN notes reviewed, old records reviewed Mode of arrival: ambulatory Limitations: no limitations - History of Present Illness Initial Comments: This is a 61-year-old male to the emergency department for evaluation. Patient presents today for evaluation regards to chest pain severe chest pain history of multiple stents significant comfortable with chest pain or shortness of breath. Symptoms felt the course of the day MD Complaint: chest pain -: hour(s) Onset: during rest, during exertion Pain Location: substernal, left chest Pain Radiation: LUE Severity: moderate Severity scale (1-10): 4 Quality: tightness, heaviness Consistency: constant Improves With: nothing Worsens With: nothing Anginal Symptoms: dyspnea Other Symptoms: palpitations Treatments Prior to Arrival: none - Related Data Home Medications Medication Instructions Recorded Confirmed Guselkumab [Tremfya] 100 mg SQ Q60D 03/14/20 06/12/21 lisinopriL [Zestril] 40 mg PO DAILY 03/14/20 06/12/21 Rosuvastatin Calcium [Crestor] 10 mg PO DAILY 06/12/21 06/12/21 amLODIPine [Norvasc] 5 mg PO DAILY 06/12/21 06/12/21 hydroCHLOROthiazide 25 mg PO DAILY 06/12/21 06/12/21 metFORMIN HCL [Glucophage] 1,000 mg PO BID 06/12/21 06/12/21 Previous Rx's Medication Instructions Recorded Aspirin 81 mg PO DAILY chew 03/18/20 Metoprolol Tartrate [Lopressor] 25 mg PO BID #60 tab 03/18/20 Allergies Allergy/AdvReac Type Severity Reaction Status Date / Time No Known Allergies Allergy Verified 06/12/21 11:33 Review of Systems ROS Statement: Those systems with pertinent positive or pertinent negative responses have been documented in the HPI. ROS Other: All systems not noted in ROS Statement are negative. EKG Findings - EKG Comments: EKG Findings:: EKG shows sinus tachycardia 103 AR 165 QRS 181 QTc 452 Past Medical History Past Medical History: Chest Pain / Angina, Hyperlipidemia, Hypertension Additional Past Medical History / Comment(s): gout, psoriasis Last Myocardial Infarction Date:: 03/19/2014 History of Any Multi-Drug Resistant Organisms: None Reported Past Surgical History: Heart Catheterization, Heart Catheterization With Stent Additional Past Surgical History / Comment(s): right leg Past Anesthesia/Blood Transfusion Reactions: No Reported Reaction Date of Last Stent Placement:: 03/19/2014 Past Psychological History: No Psychological Hx Reported Smoking Status: Current some day smoker Past Alcohol Use History: Daily Past Drug Use History: None Reported General Exam Limitations: no limitations General appearance: alert, in no apparent distress Head exam: Present: atraumatic, normocephalic, normal inspection Eye exam: Present: normal appearance, PERRL, EOMI. Absent: scleral icterus, conjunctival injection, periorbital swelling ENT exam: Present: normal exam, mucous membranes moist Neck exam: Present: normal inspection. Absent: tenderness, meningismus, lymphadenopathy Respiratory exam: Present: normal lung sounds bilaterally. Absent: respiratory distress, wheezes, rales, rhonchi, stridor Cardiovascular Exam: Present: normal rhythm, tachycardia, normal heart sounds. Absent: systolic murmur, diastolic murmur, rubs, gallop, clicks GI/Abdominal exam: Present: soft, normal bowel sounds. Absent: distended, tenderness, guarding, rebound, rigid Extremities exam: Present: normal inspection, full ROM, normal capillary refill. Absent: tenderness, pedal edema, joint swelling, calf tenderness Back exam: Present: normal inspection Neurological exam: Present: alert, oriented X3, CN II-XII intact Psychiatric exam: Present: normal affect, normal mood Skin exam: Present: warm, dry, intact, normal color. Absent: rash Course Vital Signs 06/12/21 06/12/21 06/12/21 02:11 02:27 03:26 Temperature 98.7 F Pulse Rate 107 H 100 82 Respiratory 24 18 20 Rate Blood Pressure 203/103 198/111 152/82 O2 Sat by Pulse 100 99 96 Oximetry 06/12/21 06/12/21 06/12/21 04:54 06:05 07:17 Temperature Pulse Rate 80 73 76 Respiratory 18 18 18 Rate Blood Pressure 154/85 165/88 163/85 O2 Sat by Pulse 97 95 97 Oximetry - Reevaluation(s) Reevaluation #1: 06/12/21 Medical record is reviewed Reevaluation #2: 06/12/21 2 Patient symptoms remain here in the ER positive chest pain Reevaluation #3: 06/12/21 Patient informed of results and questions are answered - Consultations Consultation #1: Spoke with sound physicians agree to admit this patient Chest Pain MDM - MDM 59 female to the ER for non-ST elevated ME with chest pain. Elevated troponin here in the ER placed on anticoagulation admitted for cardiology to see Critical Care Time Critical Care Time: Yes Total Critical Care Time: 31 Disposition Clinical Impression: Chest pain, Acute coronary syndrome with high troponin, Acute non-ST elevation myocardial infarction (NSTEMI) Disposition: ADMITTED IP TO THIS HOSP Condition: Serious Is patient prescribed a controlled substance at d/c from ED?: No
[2021-06-12 02:34] LABS: Glucose,Whole Blood 259 mg/dL (75-99)
[2021-06-12] MEDS ORDERED: MORPHINE SULFATE 4 MG/ML SYRINGE IVP STA (03:08)
[2021-06-12] MEDS ORDERED: SODIUM CHLORIDE 0.9% 1,000 ML IV STA (03:08)
[2021-06-12] MEDS ORDERED: LABETALOL 5 MG/ML VIAL MDV IVP STA (03:08)
[2021-06-12 03:34] LABS: Basophils # (A) 0.1 k/uL (0-0.2); Basophils % (A) 1 %; Eosinophils # (A) 0.1 k/uL (0-0.7); Eosinophils % (A) 1 %; HCT 50.2 % (39.0-53.0); HGB 16.8 gm/dL (13.0-17.5); Lymphocytes # (A) 1.4 k/uL (1.0-4.8); Lymphocytes % (A) 16 %; MCH 31.2 pg (25.0-35.0); MCHC 33.4 g/dL (31.0-37.0); MCV 93.5 fL (80.0-100.0); Mean Platelet Volume 8.4; Monocytes # (A) 0.6 k/uL (0-1.0); Monocytes % (A) 7 %; Neutrophils # (A) 6.4 k/uL (1.3-7.7); Neutrophils % (A) 74 %; Platelet Count 182 k/uL (150-450); RBC 5.37 m/uL (4.30-5.90); RDW 11.8 % (11.5-15.5); WBC 8.7 k/uL (3.8-10.6)
--- NOTE | 2021-06-12 03:34 | XR ---
EXAMINATION TYPE: XR chest 1V portable DATE OF EXAM: 06/12/2021 COMPARISON: 03/14/2020 HISTORY: Chest pain TECHNIQUE: Single view FINDINGS: There is no heart failure nor confluent pneumonic infiltrate. Costophrenic angles are clear . There are no hilar masses. There are chest leads. Bony thorax is intact. IMPRESSION: No active cardiopulmonary disease. There is improved inspiration compared to old exam.
[2021-06-12 03:43] LABS: Prothrombin Time 10.7 sec (9.0-12.0)
[2021-06-12 03:45] LABS: ALT 35 U/L (4-49); AST 30 U/L (17-59); African American GFR (CKD) >90 (>60 ml/min/1.73 sqM); Albumin 4.5 g/dL (3.5-5.0); Alkaline Phosphatase 86 U/L (38-126); Anion Gap 12 mmol/L; Blood Urea Nitrogen 15 mg/dL (9-20); Calcium 9.8 mg/dL (8.4-10.2); Carbon Dioxide 21 mmol/L (22-30); Chloride 95 mmol/L (98-107); Glucose 263 mg/dL (74-99); Lipase 87 U/L (23-300); Magnesium 1.7 mg/dL (1.6-2.3); Non-African American GFR(CKD) >90 (>60 ml/min/1.73 sqM); Potassium 4.5 mmol/L (3.5-5.1); Sodium 128 mmol/L (137-145); Total Bilirubin 1.4 mg/dL (0.2-1.3); Total Protein 7.7 g/dL (6.3-8.2)
[2021-06-12] MEDS ORDERED: NITROGLYCERIN SL TABS 0.4 MG TAB SUBLINGUAL PRN ×3 (04:00→12:40)
[2021-06-12] MEDS ORDERED: HEPARIN SOD,PORK IN 0.45% NACL 25,000 UNIT in 0.45% NACL 1 250ML.BAG IV SCH (04:00)
[2021-06-12] MEDS ORDERED: ASPIRIN 81 MG PO STA (04:00)
[2021-06-12] MEDS ORDERED: HEPARIN SODIUM 1,000 UN/ML (10ML VL) IV ONE (04:00)
[2021-06-12] MEDS ORDERED: MORPHINE SULFATE 4 MG/ML SYRINGE IV PRN (04:00)
[2021-06-12] MEDS ORDERED: HEPARIN SODIUM,PORCINE 10,000 UNIT in SODIUM CHLORIDE 0.9% 1,000 ML IRRIGATION PRN (07:00)
[2021-06-12] MEDS ORDERED: HEPARIN SODIUM,PORCINE 2,500 UNIT in SODIUM CHLORIDE 0.9% 250 ML IRRIGATION PRN (07:00)
[2021-06-12] MEDS ORDERED: ATORVASTATIN 80 MG TAB PO STA ×2 (07:24→10:18)
--- NOTE | 2021-06-12 07:27 | P.HPIM ---
History of Present Illness H&P Date: 06/12/21 Patient is a 61-year-old male with a PMH of coronary artery disease status post multiple stents, type II DM, hypertension, hyperlipidemia, and tobacco abuse who presented to the emergency room with complaints of chest discomfort. The patient reports that he developed substernal pressure-like discomfort involving 5:30 PM last night, radiating up to the neck, nonpleuritic, without alleviating or exacerbating features. He reports that the pain was 10 out of 10 on maximal intensity, exertional and nonexertional, with associated diaphoresis and shakiness as well as shortness of breath. He denied associated nausea, vomiting, or dizziness. Further denied experiencing cough, fever, chills, abdom inal pain, diarrhea. Reports the pain is similar to when he has had previous MIs. Reports that his pain gradually improved after coming to the hospital, and is currently at 2 out of 10. EKG in the emergency room revealed sinus tachycardia at 103 beats per minute with a left bundle branch block (previously present). Laboratory evaluation was remarkable for troponin of 0.192, sodium 128, chloride 95, with glucose 263. Review of systems: Pertinent positives and negatives as discussed in HPI, a complete review of systems was performed and all other systems are negative. Physical examination: General: non toxic, no distress, appears at stated age, morbidly obese Derm: no unusual rashes/lesions no unusual ecchymoses, warm, dry Head: atraumatic, normocephalic, symmetric Eyes: EOMI, no lid lag, anicteric sclera, pupils equal round reactive to light ENT: Nose and ears atraumatic, no thrush, no pharyngeal erythema Neck: No thyromegaly, no cervical lymphadenopathy, trachea midline, supple Mouth: no lip lesion, mucus membranes moist Cardiovascular: S1S2 reg, no murmur, positive posterior tibial pulse bilateral, no edema, capillary refill less than 2 seconds Lungs: CTA bilateral, no rhonchi, no rales , no accessory muscle use Abdominal: soft, nontender to palpation, no guarding, no appreciable organomegaly, normal bowel sounds Ext: no gross muscle atrophy, muscle strength 5 out of 5 in all 4 extremities grossly, no contractures, Neuro: CN II-XI grossly intact, light touch intact all 4 extremities, finger to nose within normal limits, Psych: Alert, oriented, appropriate affect Assessment/plan Non-ST elevation DE -Continue with heparin infusion, aspirin, statin -Cardiac monitoring -Cardiology consult -Trend troponin Hyponatremia -Likely due to acute pain with hyperglycemia Chronic conditions: Type 2 DM, hypertension, hyperlipidemia -Continue with home meds -Check A1c -Insulin sliding scale and blood glucose monitoring DVT prophylaxis -Heparin infusion The patient is admitted with an anticipated greater than than 2 midnight stay for evaluation of NSTEMI CODE STATUS: Full Code Discussed with: Patient Anticipated discharge date: 06/[address]: Home Past Medical History Past Medical History: Chest Pain / Angina, Hyperlipidemia, Hypertension Additional Past Medical History / Comment(s): gout, psoriasis Last Myocardial Infarction Date:: 03/19/2014 History of Any Multi-Drug Resistant Organisms: None Reported Past Surgical History: Heart Catheterization, Heart Catheterization With Stent Additional Past Surgical History / Comment(s): right leg Past Anesthesia/Blood Transfusion Reactions: No Reported Reaction Date of Last Stent Placement:: 03/19/2014 Past Psychological History: No Psychological Hx Reported Smoking Status: Current some day smoker Past Alcohol Use History: Daily Past Drug Use History: None Reported Medications and Allergies Home Medications Medication Instructions Recorded Confirmed Type Guselkumab [Tremfya] 100 mg SQ Q60D 03/14/20 03/14/20 History Probenecid/Colchicine 1 tab PO BID PRN 03/14/20 03/14/20 History [Probenecid-Colchicine Tablet] amLODIPine [Norvasc] 10 mg PO DAILY 03/14/20 03/14/20 History lisinopriL [Zestril] 40 mg PO DAILY 03/14/20 03/14/20 History Naproxen Sodium [Aleve] 440 mg PO BID 03/15/20 03/15/20 History Acetaminophen Tab [Tylenol] 650 mg PO Q6HR PRN tab 03/18/20 Rx Aspirin 81 mg PO DAILY chew 03/18/20 Rx Atorvastatin [Lipitor] 40 mg PO HS #30 tab 03/18/20 Rx Clopidogrel [Plavix] 75 mg PO DAILY #30 tab 03/18/20 Rx Metoprolol Tartrate [Lopressor] 25 mg PO BID #60 tab 03/18/20 Rx Nitroglycerin Sl Tabs [Nitrostat] 0.4 mg SUBLINGUAL Q5M PRN #15 tab 03/18/20 Rx Allergies Allergy/AdvReac Type Severity Reaction Status Date / Time No Known Allergies Allergy Verified 06/12/21 02:14 Physical Exam Vitals: Vital Signs Temp Pulse Resp BP Pulse Ox 06/12/21 07:17 76 18 163/85 97 06/12/21 06:05 73 18 165/88 95 06/12/21 04:54 80 18 154/85 97 06/12/21 03:26 82 20 152/82 96 06/12/21 02:27 100 18 198/111 99 06/12/21 02:11 98.7 F 107 H 24 203/103 100 Intake and Output 06/11/21 06/12/21 06/12/21 22:59 06:59 14:59 Other: Weight 129.274 kg Results CBC & Chem 7: 06/12/21 03:25 06/12/21 03:25 Labs: Abnormal Lab Results - Last 24 Hours (Table) 06/12/21 06/12/21 06/12/21 Range/Units 02:31 03:25 03:25 Sodium 128 L (137-145) mmol/L Chloride 95 L (98-107) mmol/L Carbon Dioxide 21 L (22-30) mmol/L Glucose 263 H (74-99) mg/dL POC Glucose (mg/dL) 259 H (75-99) mg/dL Total Bilirubin 1.4 H (0.2-1.3) mg/dL Troponin I 0.192 H* (0.000-0.034) ng/mL
[2021-06-12] MEDS: METOPROLOL TARTRATE 50 MG TAB PO SCH ×2 (08:27→20:47)
[2021-06-12 08:30] LABS: Glucose,Whole Blood 205 mg/dL (75-99)
[2021-06-12] MEDS: INSULIN ASPART (NovoLOG) 100 UNIT/ML VIAL SQ SCH ×4 (08:31→20:47)
--- NOTE | 2021-06-12 10:17 | P.CRDCN ---
History of Present Illness Consult date: 06/12/21 History of present illness: History of Present Illness: The patient is a 61-year-old male with known history of hypertension, hyperlipidemia, diabetes mellitus and chronic tobacco use who presents with symptoms of chest discomfort that occurred yesterday at rest associated with dyspnea. He is pain-free at this time. He has a known history of CAD status post multiple stenting most recently of the RCA and left circumflex in 2019 in a calcified segment. He has been having chest discomfort on and off but yesterday it was worse and came into the emergency room. He denies any dizziness or palpitation, he has occasional peripheral edema, no PND or orthopnea. He has been followed by Dr. Pulido in the past but has not seen him in about a year. He has no documented CHF. He was recently diagnosed with diabetes. He is not sure about his medication but he knows he is taking aspirin and amlodipine 5 mg daily in addition to a diabetic medication he cannot recall and probable hydrochlorothiazide although not clear. He drinks caffeine daily as well up to 6 beers a day Review of Systems: Respiratory: He has a history of chronic dyspnea and chronic tobacco use GI: She had nausea and vomiting today. No history of peptic ulcer disease. No recent GI bleed. : No hematuria or dysuria. Nervous System: No stroke or seizure. Physical Examination: 61-year-old male, alert oriented no apparent distress, blood pressure 163/80 with a heart rate in the 70 Head: Normocephalic. Eyes: Sclerae nonicteric. Neck: Good carotid upstroke, no bruit, no jugular venous distention. Lungs: Clear to auscultation. Heart: Regular rate and rhythm, S1-S2, no S3, no rub. No murmur. Abdomen: Soft nontender, positive bowel sounds no organomegaly. Extremities: +1 edema bilaterally. Labs: EKG shows left bundle branch block, chronic. BUN 15, creatinine 0.72, potassium 4.5. Troponin 0.192 and 7.78 NT proBNP 167, sodium 128. Hemoglobin 16.8. Chest x-ray shows no acute infiltrate. Impression: 1. Non-STEMI in a patient with known history of CAD and chronic left bundle branch block and multiple stenting in the past 2. Chronic tobacco use 3. History of hypertension 4. Diabetes mellitus 5. Hyperlipidemia 6. Daily alcohol intake Plan: 1. Continue beta lili, aspirin and statin 2. Obtain an echocardiogram with Doppler 3. Proceed with cardiac catheterization, the procedure as well as the risks and the complication were discussed with the patient and he is in agreement to proceed 4. Depending on the findings further recommendations will be made 5. Thank you for this consult we will follow with you. Past Medical History Past Medical History: Chest Pain / Angina, Hyperlipidemia, Hypertension Additional Past Medical History / Comment(s): gout, psoriasis Last Myocardial Infarction Date:: 03/19/2014 History of Any Multi-Drug Resistant Organisms: None Reported Past Surgical History: Heart Catheterization, Heart Catheterization With Stent Additional Past Surgical History / Comment(s): right leg Past Anesthesia/Blood Transfusion Reactions: No Reported Reaction Date of Last Stent Placement:: 03/19/2014 Past Psychological History: No Psychological Hx Reported Smoking Status: Current some day smoker Past Alcohol Use History: Daily Past Drug Use History: None Reported Medications and Allergies Home Medications Medication Instructions Recorded Confirmed Type Guselkumab [Tremfya] 100 mg SQ Q60D 03/14/20 03/14/20 History Probenecid/Colchicine 1 tab PO BID PRN 03/14/20 03/14/20 History [Probenecid-Colchicine Tablet] amLODIPine [Norvasc] 10 mg PO DAILY 03/14/20 03/14/20 History lisinopriL [Zestril] 40 mg PO DAILY 03/14/20 03/14/20 History Naproxen Sodium [Aleve] 440 mg PO BID 03/15/20 03/15/20 History Acetaminophen Tab [Tylenol] 650 mg PO Q6HR PRN tab 03/18/20 Rx Aspirin 81 mg PO DAILY chew 03/18/20 Rx Atorvastatin [Lipitor] 40 mg PO HS #30 tab 03/18/20 Rx Clopidogrel [Plavix] 75 mg PO DAILY #30 tab 03/18/20 Rx Metoprolol Tartrate [Lopressor] 25 mg PO BID #60 tab 03/18/20 Rx Nitroglycerin Sl Tabs [Nitrostat] 0.4 mg SUBLINGUAL Q5M PRN #15 tab 03/18/20 Rx Allergies Allergy/AdvReac Type Severity Reaction Status Date / Time No Known Allergies Allergy Verified 06/12/21 02:14 Physical Exam Vitals: Vital Signs Temp Pulse Resp BP Pulse Ox 06/12/21 07:17 76 18 163/85 97 06/12/21 06:05 73 18 165/88 95 06/12/21 04:54 80 18 154/85 97 06/12/21 03:26 82 20 152/82 96 06/12/21 02:27 100 18 198/111 99 06/12/21 02:11 98.7 F 107 H 24 203/103 100 Intake and Output 06/11/21 06/12/21 06/12/21 22:59 06:59 14:59 Other: Weight 129.274 kg Results 06/12/21 03:25 06/12/21 03:25 Cardiac Enzymes 06/12/21 06/12/21 06/12/21 Range/Units 03:25 03:25 07:26 AST 30 (17-59) U/L Troponin I 0.192 H* 7.780 H* (0.000-0.034) ng/mL Coagulation 06/12/21 Range/Units 03:25 PT 10.7 (9.0-12.0) sec APTT 27.0 (22.0-30.0) sec CBC 06/12/21 Range/Units 03:25 WBC 8.7 (3.8-10.6) k/uL RBC 5.37 (4.30-5.90) m/uL Hgb 16.8 (13.0-17.5) gm/dL Hct 50.2 (39.0-53.0) % Plt Count 182 (150-450) k/uL Comprehensive Metabolic Panel 06/12/21 Range/Units 03:25 Sodium 128 L (137-145) mmol/L Potassium 4.5 (3.5-5.1) mmol/L Chloride 95 L (98-107) mmol/L Carbon Dioxide 21 L (22-30) mmol/L BUN 15 (9-20) mg/dL Creatinine 0.72 (0.66-1.25) mg/dL Glucose 263 H (74-99) mg/dL Calcium 9.8 (8.4-10.2) mg/dL AST 30 (17-59) U/L ALT 35 (4-49) U/L Alkaline Phosphatase 86 (38-126) U/L Total Protein 7.7 (6.3-8.2) g/dL Albumin 4.5 (3.5-5.0) g/dL Current Medications Generic Name Dose Route Start Last Admin Trade Name Freq PRN Reason Stop Dose Admin Aspirin 325 mg 06/13/21 09:00 Aspirin 325 Mg Tab PO DAILY [facility] Heparin Sodium/Sodium Chloride 250 mls @ 10.342 mls/hr 06/12/21 04:00 06/12/21 04:48 25,000 unit/ Sodium Chloride IV 8 units/kg/hr .Q24H CALLIE 10.342 mls/hr Administration Protocol 8 UNITS/KG/HR Insulin Aspart 0 unit 06/12/21 07:45 06/12/21 08:31 Insulin Aspart (Novolog) 100 Unit/Ml Vial SQ 2 unit ACHS [facility] Administration Protocol Metoprolol Tartrate 50 mg 06/12/21 09:00 06/12/21 08:27 Metoprolol Tartrate 50 Mg Tab PO 50 mg BID [facility] Administration Morphine Sulfate 4 mg 06/12/21 04:00 Morphine Sulfate 4 Mg/Ml Syringe IV Q4HR PRN Chest Pain Nitroglycerin 0.4 mg 06/12/21 04:00 Nitroglycerin Sl Tabs 0.4 Mg Tab SUBLINGUAL Q5M PRN Chest Pain Intake and Output 06/11/21 06/12/21 06/12/21 22:59 06:59 14:59 Other: Weight 129.274 kg 06/12/21 03:25 06/12/21 03:25
[2021-06-12] MEDS ORDERED: ASPIRIN 325 MG TAB PO STA (10:18)
[2021-06-12] MEDS ORDERED: ALPRAZolam 0.5 MG TAB PO PRN (10:18)
[2021-06-12] MEDS ORDERED: ALPRAZolam 0.25 MG TAB PO PRN (10:18)
[2021-06-12] MEDS ORDERED: HEPARIN SODIUM 1,000 UN/ML (10ML VL) ONE (11:30)
[2021-06-12] MEDS ORDERED: fentaNYL (PF) 50 MCG/ML 2 ML AMP ONE (11:30)
[2021-06-12] MEDS ORDERED: LIDOCAINE 1% INJ 10MG/ML (20 ML MDV) ONE (11:30)
[2021-06-12] MEDS ORDERED: VERAPAMIL 2.5 MG/ML 2 ML AMP ONE (11:30)
[2021-06-12] MEDS ORDERED: IV FLUID CONTINUATION 1,000 ML IV ONE (11:35)
[2021-06-12] MEDS ORDERED: fentaNYL (PF) 50 MCG/ML 2 ML AMP IVP ONE (11:50)
[2021-06-12] MEDS ORDERED: LIDOCAINE 1% INJ 10MG/ML (20 ML MDV) SQ ONE (11:55)
[2021-06-12] MEDS ORDERED: VERAPAMIL SYRINGE (5 MG/10 ML) INTRAARTER ONE (11:57)
[2021-06-12] MEDS ORDERED: MIDAZOLAM 2 MG/2 ML VIAL IVP ONE (11:58)
[2021-06-12] MEDS ORDERED: HEPARIN SODIUM 1,000 UN/ML (10ML VL) IVP ONE (12:00)
[2021-06-12] MEDS ORDERED: PRASUGREL 10 MG TAB ONE (12:18)
[2021-06-12] MEDS ORDERED: IOPAMIDOL-370 125ML BTL INJ ONE (12:24)
[2021-06-12] MEDS ORDERED: PRASUGREL 10 MG TAB PO ONE (12:24)
[2021-06-12] MEDS ORDERED: IOPAMIDOL-370 100ML BTL INJ ONE (12:33)
[2021-06-12] MEDS ORDERED: ATROPINE SULFATE 0.1 MG/ML 10ML SYRINGE IV PRN (12:40)
[2021-06-12] MEDS ORDERED: MAG HYDROX/AL HYDROX/SIMETH 30 ML CUP PO PRN (12:40)
[2021-06-12] MEDS ORDERED: RX INFO: IV CONTRAST WAS GIVEN 1 EACH MISC MISCELLANE PRN (12:40)
[2021-06-12] MEDS ORDERED: ZOLPIDEM 5 MG TAB PO PRN (12:40)
[2021-06-12] MEDS ORDERED: SODIUM CHLORIDE 0.9% 1,000 ML in EMPTY BAG 1 BAG IV SCH (12:45)
--- NOTE | 2021-06-12 12:50 | P.CARDCATH ---
Date of Procedure: 06/12/21 Description of Procedure: CARDIAC CATHETERIZATION REPORT CLINICAL HISTORY: The patient is a 61-year-old male with a known history of hypertension, hyperlipidemia and diabetes mellitus, chronic tobacco use with multiple percutaneous revascularization, most recently in 2019 to the left circumflex and to the RCA who presented to symptoms of chest discomfort and troponin elevation consistent with non-STEMI. In view of that recommendations were made a cardiac catheterization, the procedure as well as the risks and the complications were discussed with the patient who is informed understanding and agreement. PROCEDURE: The patient was brought to the cardiac catheterization lab in a fasting, semi-sedated state after receiving Versed and Benadryl. The patient was prepped and draped in the conventional fashion. Using Xylocaine anesthesia, in the Seldinger technique, a 6 Russian sheath was introduced in the right radial artery. Selective right and left coronary angiography performed using 5-Russian 3-1/2 bend right 6-Russian XB 4 guiding catheter. Attempt to cannulate the left main with 5-Russian 3-1/2 and 4 bend left Brittaney were unsuccessful. Multiple views of the coronary artery, including hemiaxial views were obtained. Right Brittaney was introduced in the left ventricle and LVEDP was obtained. At the end of the procedure the catheter were removed. Images were reviewed. SELECTIVE CORONARY ARTERIOGRAPHY: Fluoroscopy severe calcifications of the coronary arteries were noted LEFT MAIN CORONARY ARTERY: This is a large size vessel, bifurcating into left circumflex and LAD left main has no high-grade stenosis LEFT ANTERIOR DESCENDING CORONARY ARTERY: This vessel has multiple stents throughout the proximal and midsegment. It gives rise to a moderate diagonal branch in the mid segment. There is diffuse in-stent restenosis of 30-50%. The distal vessel is small in caliber LEFT CIRCUMFLEX CORONARY ARTERY: This is a nondominant vessel, large in caliber, giving rise to 4 obtuse marginal branch. The left circumflex has multiple stents. There is a 50% stenosis prior to the takeoff of the second obtuse marginal branch, second obtuse marginal branch is totally occluded in the stented segment was very slow distal filling. After the takeoff of the second obtuse marginal branch there is a 99% in-stent restenosis the vessel beyond that is small in caliber. RIGHT CORONARY ARTERY: This is a large size vessel, bifurcating into PDA and PLV, dominant has multiple stents in the proximal and midsegment. In the midsegment there is a 99% in-stent restenosis LEFT VENTRICULOGRAM: Not performed HEMODYNAMICS: No gradient across the aortic valve, LVEDP 20 mmHg CONCLUSION: 1. Calcified coronary arteries 2. Severe in-stent restenosis of the mid RCA 3. Occlusion of the stent of the second OM and subtotal occlusion of the distal circumflex 4. Moderate disease with in-stent restenosis of the LAD RECOMMENDATIONS: In view of the findings I have recommended to proceed with angioplasty and stenting RCA, the procedure as well as the risks and the complications were discussed with the patient and he was in full agreement and understanding.
--- NOTE | 2021-06-12 12:53 | P.CARDCATH ---
Date of Procedure: 06/12/21 Description of Procedure: PERCUTANEOUS TRANSLUMINAL CORONARY ANGIOPLASTY CLINICAL INFORMATION: The patient is a 61-year-old male with a known history of multivessel stenting who presented with non-STEMI, underwent cardiac catheterization and was found to have critical stenosis in the midright coronary artery. Recommendations were made regarding angioplasty and stenting, the procedure as well as the risks and the complications discussed with the patient who was in full understanding and agreement. PROCEDURE: A 6 Latvian 0.75 AL guiding catheter was introduced into the system. After cannulating the ostium of the RCA, a 0.014 balanced medium J-wire was advanced across the lesion and positioned distally. A 3.5 x 12 mm NC Treck balloon was advanced and multiple patient at a maximum of 10 richard were done. Following that a 4.0 x 15 mm Xience kenia point stent was deployed. It was dilated at 16. After the last inflation, after appropriate wait, the balloon and the guidewire were withdrawn back into the guiding catheter. Images were obtained and repeated. Those images reveal stable successful stenting. At that point, the guiding catheter, the balloon, and guidewire were removed. The sheath was removed. Hemostasis was obtained with deployment of a TR band. There were no immediate complications. The patient was returned to the room in stable condition. Of note, the patient received 5000 units of heparin as well as Effient. The patient had no chest discomfort. His ACT was followed. RESULTS: Successful stenting of the mid RCA with reduction of stenosis from 99 % to 0 %. RECOMMENDATIONS: The findings and recommendations were discussed with the patient. He will be continued on dual antiplatelets treatment for one year. Depending on his symptoms attempt to recanalize the left circumflex can be attempted although it has a high risk of restenosis. In the meantime would maxi samantha his medical therapy. The findings were discussed with the patient and his family. Duration of sedation 38 minutes.
[2021-06-12] MEDS: lisinopriL 5 MG TAB PO SCH ×2 (13:37→20:59)
[2021-06-12] MEDS: ISOSORBIDE MONONITRATE ER 30 MG TAB.ER.24H PO SCH (13:37)
[2021-06-12 13:48] LABS: Glucose,Whole Blood 184 mg/dL (75-99)
[2021-06-12 16:32] LABS: Chol/HDL Ratio 4.92 Ratio; LDL Cholesterol,Calculated 104.4 mg/dL (0.0-131.0)
[2021-06-12 16:37] LABS: Glucose,Whole Blood 285 mg/dL (75-99)
[2021-06-12] MEDS ORDERED: ATORVASTATIN 80 MG TAB PO SCH (21:00)
[2021-06-12 21:12] LABS: Glucose,Whole Blood 199 mg/dL (75-99)
[2021-06-13] MEDS: INSULIN ASPART (NovoLOG) 100 UNIT/ML VIAL SQ SCH ×2 (06:25→12:10)
[2021-06-13 06:27] LABS: Glucose,Whole Blood 193 mg/dL (75-99)
[2021-06-13] MEDS: METOPROLOL TARTRATE 50 MG TAB PO SCH (08:11)
[2021-06-13] MEDS: ISOSORBIDE MONONITRATE ER 30 MG TAB.ER.24H PO SCH (08:11)
[2021-06-13] MEDS: lisinopriL 5 MG TAB PO SCH (08:11)
[2021-06-13 08:15] VITALS: TEMP 97.7
[2021-06-13 08:43] LABS: HCT 44.6 % (39.0-53.0); MCH 32.4 pg (25.0-35.0); MCHC 33.6 g/dL (31.0-37.0); MCV 96.3 fL (80.0-100.0); Mean Platelet Volume 8.3; Platelet Count 165 k/uL (150-450); RBC 4.63 m/uL (4.30-5.90); RDW 12.6 % (11.5-15.5); WBC 6.6 k/uL (3.8-10.6)
[2021-06-13 08:56] LABS: African American GFR (CKD) >90 (>60 ml/min/1.73 sqM); Anion Gap 6 mmol/L; Blood Urea Nitrogen 15 mg/dL (9-20); Calcium 8.8 mg/dL (8.4-10.2); Carbon Dioxide 22 mmol/L (22-30); Chloride 104 mmol/L (98-107); Glucose 174 mg/dL (74-99); Non-African American GFR(CKD) >90 (>60 ml/min/1.73 sqM); Potassium 4.3 mmol/L (3.5-5.1); Sodium 132 mmol/L (137-145)
[2021-06-13] MEDS ORDERED: ASPIRIN 81 MG PO SCH ×2 (09:00)
[2021-06-13] MEDS ORDERED: PRASUGREL 10 MG TAB PO SCH (09:00)
[2021-06-13] MEDS ORDERED: ASPIRIN 325 MG TAB PO SCH (09:00)
--- NOTE | 2021-06-13 11:13 | P.DS ---
Providers Date of admission: 06/12/21 04:00 Expected date of discharge: 06/13/21 Attending physician: Joshua Devlin Consults: 06/12/21 04:00 Consult Physician Routine Consulting Provider: Cindy Baez Consult Reason/Comments: cp Do you want consulting provider notified?: Yes 06/12/21 12:40 Consult Physician Routine Consulting Provider: [facility] Consult Reason/Comments: Post Interventional patient Do you want consulting provider notified?: Already Contacted Primary care physician: [facility] Course: Patient is a 61-year-old male with a PMH of coronary artery disease status post multiple stents, type II DM, hypertension, hyperlipidemia, and tobacco abuse who presented to the emergency room with complaints of chest discomfort. The patient reports that he developed substernal pressure-like discomfort involving 5:30 PM last night, radiating up to the neck, nonpleuritic, without alleviating or exacerbating features. He reports that the pain was 10 out of 10 on maximal intensity, exertional and nonexertional, with associated diaphoresis and shakiness as well as shortness of breath. He denied associated nausea, vomiting, or dizziness. Further denied experiencing cough, fever, chills, abdominal pain, diarrhea. Reports the pain is similar to when he has had previous MIs. Reports that his pain gradually improved after coming to the [facility], and is currently at 2 out of 10. EKG in the emergency room revealed sinus tachycardia at 103 beats per minute with a left bundle branch block (previously present). Laboratory evaluation was remarkable for troponin of 0.192, sodium 128, chloride 95, with glucose 263. 06/13: She was seen and followed by cardiology. He underwent heart catheterization on 06/12 that revealed calcified coronary arteries, severe in- stent restenosis of the mid RCA, occlusion of the stent of the second OM and subtotal occlusion of the distal circumflex, moderate disease with in-stent restenosis of the LAD. Dr. Baez recommended proceeding with angioplasty and stenting of the RCA which was done successfully, maximize medical therapy. Depending on symptoms, there may be attempted to recanalize the left circumflex although it is high risk for restenosis. Patient is seen today on the cardiac stepdown unit. He denies having any chest pain. He states he is feeling much better than when he came in the hospital. She has been afebrile, heart rate 59, blood pressure 125/70, pulse ox 96% on room air. Repeat blood work reveals CBC within normal limits, sodium 132, BUN 15 creatinine 0.61. Capillary blood glucose running between 193 and 285. Cardiology has cleared the patient and he will be discharged today in stable condition. DISCHARGE DIAGNOSES Non-ST elevation [place] Hyponatremia Type 2 DM Hypertension Hyperlipidemia Psoriasis DISCHARGE PLAN Home Greater than 35 minutes was utilized and coordinating patient's discharge. Impression and plan of care have been directed as dictated by the signing physician. Adrianna Carvalho nurse practitioner acting as scribe for signing physician. Patient Condition at Discharge: Good Plan - Discharge Summary New Discharge Prescriptions: New Nitroglycerin Sl Tabs [Nitrostat] 0.4 mg SUBLINGUAL Q5M PRN #25 tab PRN Reason: Chest Pain Prasugrel [Effient] 10 mg PO DAILY #30 tab Isosorbide Mononitrate ER [Imdur] 30 mg PO DAILY #30 tablet Atorvastatin [Lipitor] 80 mg PO HS #30 tab Metoprolol Tartrate [Lopressor] 50 mg PO BID #60 tab lisinopriL [Zestril] 5 mg PO BID #30 tab Continue Guselkumab [Tremfya] 100 mg SQ Q60D Aspirin 81 mg PO DAILY chew metFORMIN HCL [Glucophage] 1,000 mg PO BID #0 Discontinued lisinopriL [Zestril] 40 mg PO DAILY Metoprolol Tartrate [Lopressor] 25 mg PO BID #60 tab hydroCHLOROthiazide 25 mg PO DAILY Rosuvastatin Calcium [Crestor] 10 mg PO DAILY amLODIPine [Norvasc] 5 mg PO DAILY Discharge Medication List Guselkumab [Tremfya] 100 mg SQ Q60D 03/14/20 [History] Aspirin 81 mg PO DAILY chew 03/18/20 [Rx] Atorvastatin [Lipitor] 80 mg PO HS #30 tab 06/13/21 [Rx] Isosorbide Mononitrate ER [Imdur] 30 mg PO DAILY #30 tablet 06/13/21 [Rx] Metoprolol Tartrate [Lopressor] 50 mg PO BID #60 tab 06/13/21 [Rx] Nitroglycerin Sl Tabs [Nitrostat] 0.4 mg SUBLINGUAL Q5M PRN #25 tab 06/13/21 [Rx] Prasugrel [Effient] 10 mg PO DAILY #30 tab 06/13/21 [Rx] lisinopriL [Zestril] 5 mg PO BID #30 tab 06/13/21 [Rx] metFORMIN HCL [Glucophage] 1,000 mg PO BID #0 06/13/21 [Rx] Follow up Appointment(s)/Referral(s): Joshua Devlin MD [Primary Care Provider] - 1 Week Cindy Baez MD [STAFF PHYSICIAN] - 1 Week Discharge Disposition: HOME SELF-CARE
[2021-06-13 11:30] LABS: Glucose,Whole Blood 280 mg/dL (75-99)
--- NOTE | 2021-06-13 11:58 | P.PN ---
Subjective History of Present Illness: The patient is a 61-year-old male with known history of hypertension, hyperlipidemia, diabetes mellitus and chronic tobacco use who presents with symptoms of chest discomfort that occurred yesterday at rest associated with dyspnea. He is pain-free at this time. He has a known history of CAD status post multiple stenting most recently of the RCA and left circumflex in 2019 in a calcified segment. He has been having chest discomfort on and off but yesterday it was worse and came into the emergency room. He denies any dizziness or palpitation, he has occasional peripheral edema, no PND or orthopnea. He has been followed by Dr. Pulido in the past but has not seen him in about a year. He has no documented CHF. He was recently diagnosed with diabetes. He is not sure about his medication but he knows he is taking aspirin and amlodipine 5 mg daily in addition to a diabetic medication he cannot recall and probable hydrochlorothiazide although not clear. He drinks caffeine daily as well up to 6 beers a day 06/13 Patient seen and examined. Patient denies any further chest pain or pressure. Underwent heart catheterization which showed RCA disease as well as subtotal circumflex which was treated medically. He underwent successful PCI of the RCA. He has been up walking around without any difficulty. Physical Examination: Vitals reviewed Head: Normocephalic. Eyes: Sclerae nonicteric. Neck: Good carotid upstroke, no bruit, no jugular venous distention. Lungs: Clear to auscultation. Heart: Regular rate and rhythm, S1-S2, no S3, no rub. No murmur. Abdomen: Soft nontender, positive bowel sounds no organomegaly. Extremities: +1 edema bilaterally. Impression: 1. Non-STEMI in a patient with known history of CAD 2. Chronic tobacco use 3. History of hypertension 4. Diabetes mellitus 5. Hyperlipidemia 6. Daily alcohol intake 7. CAD s/p PCI RCA 06/12 with residual circumflex disease Plan: 1. Continue beta lili, aspirin and statin 2. Echo taken and pending 3. Patient does still have circumflex disease however attempt medical therapy first with Imdur and beta lili. Continue with dual antiplatelets. Appears stable for discharge home with outpatient follow-up in 1 week. Objective - Vital Signs Vital signs: Vital Signs Temp 97.7 F 06/13/21 08:13 Pulse 59 L 06/13/21 08:13 Resp 18 06/13/21 08:13 BP 125/70 06/13/21 08:13 Pulse Ox 96 06/13/21 08:13 Intake & Output 06/12/21 06/13/21 06/13/21 18:59 06:59 18:59 Intake Total 350 240 Output Total 880 550 Balance -530 -310 Weight 129.274 kg Intake: IV 150 Oral 200 240 Output: Urine 880 550 Other: Voiding Method Urinal Urinal - Labs CBC & Chem 7: 06/13/21 08:17 06/13/21 08:17 Labs: Abnormal Lab Results - Last 24 Hours (Table) 06/12/21 06/12/21 06/12/21 Range/Units 11:12 11:12 11:12 Sodium (137-145) mmol/L Creatinine (0.66-1.25) mg/dL Glucose (74-99) mg/dL POC Glucose (mg/dL) (75-99) mg/dL Hemoglobin A1c 8.3 H (0.0-6.0) % Troponin I 14.000 H* (0.000-0.034) ng/mL Triglycerides 227.00 H (0.00-149.00) mg/dL VLDL Cholesterol, Calc 45.40 H (5.00-40.00) mg/dL HDL Cholesterol 38.20 L (40.00-60.00) mg/dL 06/12/21 06/12/21 06/12/21 Range/Units 13:47 14:00 16:34 Sodium (137-145) mmol/L Creatinine (0.66-1.25) mg/dL Glucose (74-99) mg/dL POC Glucose (mg/dL) 184 H 285 H (75-99) mg/dL Hemoglobin A1c (0.0-6.0) % Troponin I 17.800 H* (0.000-0.034) ng/mL Triglycerides (0.00-149.00) mg/dL VLDL Cholesterol, Calc (5.00-40.00) mg/dL HDL Cholesterol (40.00-60.00) mg/dL 06/12/21 06/13/21 06/13/21 Range/Units 20:31 05:59 08:17 Sodium 132 L (137-145) mmol/L Creatinine 0.61 L (0.66-1.25) mg/dL Glucose 174 H (74-99) mg/dL POC Glucose (mg/dL) 199 H 193 H (75-99) mg/dL Hemoglobin A1c (0.0-6.0) % Troponin I (0.000-0.034) ng/mL Triglycerides (0.00-149.00) mg/dL VLDL Cholesterol, Calc (5.00-40.00) mg/dL HDL Cholesterol (40.00-60.00) mg/dL 06/13/21 Range/Units 11:28 Sodium (137-145) mmol/L Creatinine (0.66-1.25) mg/dL Glucose (74-99) mg/dL POC Glucose (mg/dL) 280 H (75-99) mg/dL Hemoglobin A1c (0.0-6.0) % Troponin I (0.000-0.034) ng/mL Triglycerides (0.00-149.00) mg/dL VLDL Cholesterol, Calc (5.00-40.00) mg/dL HDL Cholesterol (40.00-60.00) mg/dL
--- NOTE | 2021-06-13 12:01 | ECHOF ---
Referral Reason:cad MEASUREMENTS -------- HEIGHT: 188.0 cm WEIGHT: 129.3 kg BP: 116/61 IVSd: 1.6 cm (0.6 - 1.1) LVIDd: 4.8 cm (3.9 - 5.3) LVPWd: 1.2 cm (0.6 - 1.1) IVSs: 1.4 cm LVIDs: 2.8 cm LVPWs: 1.5 cm MV E Chapin: 0.75 m/s MV DecT: 125 ms MV A Chapin: 0.87 m/s MV E/A Ratio: 0.86 FINDINGS -------- Sinus rhythm. This was a technically difficult study with suboptimal views. The left ventricular size is normal. There is moderate concentric left ventricular hypertrophy. O verall left ventricular systolic function is mild-moderately impaired with, an EF between 40 - 45 %. Distal Septal Hypokinesis. The RV was not well visualized. The left atrium was not well visualized. The right atrium was not well visualized. 5.0mg of Lumason was utilized for enhancement of images The aortic valve was not well visualized. There is no evidence of aortic regurgitation. There is no evidence of aortic stenosis. The mitral valve was not well visualized. No mitral regurgitation. The tricuspid valve was not well visualized. The pulmonic valve was not well visualized. IVC Not well visulized. There is no pericardial effusion. CONCLUSIONS -------- 1. The left ventricular size is normal. 2. There is moderate concentric left ventricular hypertrophy. 3. Overall left ventricular systolic function is mild-moderately impaired with, an EF between 40 - 45 %. 4. Distal Septal Hypokinesis. 5. The tricuspid valve was not well visualized. 6. The pulmonic valve was not well visualized. CHUCKER: Lucrecia Michel RD
[2021-06-13 13:36] VITALS: BP 133/67; PULSE 58; RESP 16
[2021-06-13 14:40] VITALS: BMI 36.6
[2021-06-13 15:22] LABS: Chol/HDL Ratio 4.43 Ratio; LDL Cholesterol,Calculated 83.6 mg/dL (0.0-131.0)
== END 2021-06-13 16:05 | disposition home or self-care (01) | DRG 246 ==
LOC: EC 02:09 → 3SCARD 04:00
PROVIDERS: ADMIT Internal Medicine Geriatric Medicine; ATTEND Internal Medicine Geriatric Medicine
PROC: 027034Z Dilation of Coronary Artery, One Artery with Drug-eluting Intraluminal Device, Percutaneous Approach (ICD-10-PCS; principal; 2021-06-12 11:05)
PROC: B2111ZZ Fluoroscopy of Multiple Coronary Arteries using Low Osmolar Contrast (ICD-10-PCS; 2021-06-12 11:05)
DX: T82.855A Stenosis of coronary artery stent, initial encounter (principal); I21.4 Non-ST elevation (NSTEMI) myocardial infarction; E87.1 Hypo-osmolality and hyponatremia; E11.65 Type 2 diabetes mellitus with hyperglycemia; E66.01 Morbid (severe) obesity due to excess calories; J44.9 Chronic obstructive pulmonary disease, unspecified; I44.7 Left bundle-branch block, unspecified; I25.10 Atherosclerotic heart disease of native coronary artery without angina pectoris; I25.2 Old myocardial infarction; I10 Essential (primary) hypertension; E78.5 Hyperlipidemia, unspecified; E78.00 Pure hypercholesterolemia, unspecified; Z68.36 Body mass index [BMI] 36.0-36.9, adult; F17.210 Nicotine dependence, cigarettes, uncomplicated; Z71.6 Tobacco abuse counseling; L40.9 Psoriasis, unspecified; Z79.82 Long term (current) use of aspirin; Z79.84 Long term (current) use of oral hypoglycemic drugs; Z79.899 Other long term (current) drug therapy; Z87.39 Personal history of other diseases of the musculoskeletal system and connective tissue; Z71.3 Dietary counseling and surveillance; Y83.1 Surgical operation with implant of artificial internal device as the cause of abnormal reaction of the patient, or of later complication, without mention of misadventure at the time of the procedure
CPT/HCPCS: 36415; 71045; 80048; 80053; 80061; 83036; 83690; 83735; 83880; 84484; 85025; 85027; 85610; 85730; 93005; 93306; 93458; 96361; 96365; 96366; 96375; 99285